=== PATIENT | male | born 1995 | race Caucasian/White ===

== ENCOUNTER 2024-06-01 16:28 | Inpatient (IN) | payer OTHER, SELFPAY ==
[2024-06-01] VITALS (7 sets, daily range): BP systolic 99–123; BP diastolic 62–78; BMI 24.7
--- NOTE | 2024-06-01 13:02 | ED.GENMED ---
History of Present Illness
General
Chief Complaint: Abnormal Lab Value
Source: patient and records
Time Seen by Provider: 06/01/24 12:49
History of Present Illness
History of Present Illness:
28yoM with a history of cyclic vomiting syndrome, GERD, and anemia presenting for evaluation of anemia. Patient started to have a headache about a week ago. He had similar symptoms in the past when he was anemic. His PCP sent him for lab work 6
days ago and hemoglobin was 8.3 at that time. Since getting his labs drawn, patient reports increasing lightheadedness as well as pallor. He was seen by his PCP today and was told to go to the ED for evaluation. Patient denies any shortness of
breath, chest pain, syncope. Patient was admitted in September 2023 and hemoglobin was 4.9 on presentation. He underwent EGD and colonoscopy which were normal. He also underwent a capsule study after his admission which was also normal and no
source of his anemia was found. Hemoglobin was 10.1 at time of discharge. He denies any hematochezia or melena currently. Of note, patient took a dose of azithromycin yesterday for chlamydia and had several episodes of vomiting several hours later.
Past History
Past History
ED Past Medical History: Other (Cyclic vomiting syndrome)
ED Past Surgical History: None
Social History
Tobacco: Non-smoker
Alcohol: None
Phy Exam
General Physical Exam
General Presentation: well appearing
General age: appears stated age
General Skin: warm and dry
General Habitus: normal
General Mental: alert
Cardiovascular Exam
Cardiovascular Exam: regular rate/rhythm, no edema and no murmur
Pulmonary Exam
Pulmonary Exam: lungs clear, no respiratory distress, no crackles and no wheezing
Gastrointestinal Exam
Gastrointestinal Exam: soft, non distended and tender (Mild tenderness in epigastrium)
Rectal Exam: other (No stool obtained on SRINIVAS)
Skin Exam
Skin Exam: normal color and warm/dry
Psychiatric Exam
Psychiatric Exam: normal mood/affect
Course
Orders/Labs/Results
Orders:
Orders
06/01/24 13:13
Type+Screen Urgent
Complete Blood Count/With Diff Urgent
Comprehensive Metabolic Panel Urgent
Ferritin Urgent
Folate Urgent
Comment: FERRITIN,TIBC,IRON,B12,FOLATE ADDED ON BY FLOOR 3:30PM 06-01-24
Iron Urgent
Lipase Urgent
PTT Urgent
Prothrombin Time Urgent
Total Iron Binding Urgent
Vitamin B12 Urgent
06/01/24 Dinner
Regular
At Your Request: Full Participation
Does patient need a safe tray?: No
06/01/24 15:36
Add On- LAB Routine
Tests Added?: ferritin, TIBC, iron level, B12, folate level
06/01/24 16:09
Blood Bank Products [* Blood Bank Products] Urgent
Blood Bank Products: *Packed RBC Leuko(PRBC's)
Quantity: 1
Transfuse Today: Yes
Reason: Anemia
06/01/24 16:10
HEMATOLOGY CONSULT Routine
Consulting Provider: Julian Baker
Was physician already notified: Yes
Reason for consult: Symptomatic anemia
06/01/24 16:12
Admit/Transfer Patient As Directed
Co-Sign Provider:
Level of Care: Inpatient admission
Assign to:: Medical/Surgical
Physician / Group: debby cole
Diagnosis: Symptomatic anemia likely iron deficient concern thalassemia
Reason for Hospitalization: Symptomatic anemia likely iron deficient concern thalassemia
Expected length of stay greater than two midnights?: Yes
ELOS- Estimated Length of Stay in days: 3
I certify the patient meets the requirements for IP care: Yes
Code Status As Directed
Resuscitation Status: Full Code
06/01/24 16:14
PRN Pain Medication Management As Directed
May give lesser potent ordered pain med per pt: Yes
preference::
Protocol:: Medication orders for pain may be administered in a
manner that supports deferring to patient preference
when the pt is:
- Requesting an ordered lesser potent pain medication.
Least to most potent pain medications are defined
as: acetaminophen < NSAID < tramadol < opioids
(morphine, oxycodone, hydromorphone).
- Requesting a lesser dose of the same medication IF
ORDERED.
- Requesting a less intrusive route of administration
if both routes are prescribed by the provider (PO <
IV).
06/01/24 16:16
Pantoprazole [Protonix] 40 mg PO NOW STA
06/01/24 18:41
Acetaminophen [Tylenol] 650 mg PO Q4HPRN PRN
Ondansetron Injectable [Zofran] 4 mg IV Q6HPRN PRN
06/01/24 18:41
Activity As Directed
Activity Level: As Tolerated
Pneumatic Compression Sleeves As Directed
Type: Knee high
Vital Signs As Directed
Frequency: Per unit guidelines
Pt Eval And Treat Routine
Activity Level: As Tolerated
DX Deep Vein Thrombosis Video Routine
06/02/24 06:00
Basic Metabolic Panel IN AM
Complete Blood Count/With Diff IN AM
06/02/24 08:00
Pantoprazole [Protonix] 40 mg PO DAILY
06/03/24 06:00
Basic Metabolic Panel IN AM
Complete Blood Count/With Diff IN AM
Abnormal Lab Results
06/01/24
13:13
RBC 4.05 L 10^6/uL
(4.70-6.10)
Hgb 7.5 L g/dL
(13.0-18.0)
Hct 25.4 L %
(39.0-52.0)
MCV 62.7 L fL
(80.0-94.0)
MCH 18.5 L pg
(27.0-31.0)
MCHC 29.5 L g/dL
(33.0-37.0)
RDW 15.0 H %
(11.5-14.5)
PT 15.3 H Sec
(11.4-14.6)
Iron 34 L ug/dl
(49-181)
% Saturation 7 L %
(20-50)
Crossmatch IS Only See Detail
06/01/24 13:13
06/01/24 13:13
Vital Signs
Initial and Last Documented VS:
Initial Vital Signs
Temp Pulse Resp BP Pulse Ox
98.0 F 79 18 110/78 100
06/01/24 12:08 06/01/24 12:08 06/01/24 12:08 06/01/24 12:08 06/01/24 12:08
Last Documented Vital Signs
Temp Pulse Resp BP Pulse Ox
98.4 F 69 18 110/67 99
06/01/24 18:42 06/01/24 18:42 06/01/24 18:42 06/01/24 18:42 06/01/24 18:42
MDM/Problems Addressed
Differential Diagnosis Includes:
28yoM here with anemia. Outpatient hemoglobin 8.3 last week. C/o lightheadedness and pallor. No hematochezia or melena reported. He is afebrile and hemodynamically stable. He is well-appearing in no acute distress. No stool obtained on digital
rectal exam. Differential diagnosis includes but is not limited to: Symptomatic anemia, hemolytic anemia, GI bleed
Initial ED plan: Check CBC, CMP, coags, and type and screen.
*Critical Care Note
Total Time (30-74mins, 75-104mins- exclusive of procedures): Not Applicable
Update Note
Update Note:
Hemoglobin 7.5 which is down from 10.1 at discharge in September 2023. Remainder of labs unremarkable. Will admit for further evaluation and management.
ED Attending Note
-
Portions of this chart may have been created with voice recognition software.� Occasional wrong word or��sound alike� substitutions may have occurred due to the inherent limitations of voice recognition software.
Discharge Plan
Departure
Patient Disposition: Admit
Date of Disposition: 06/01/24
Time of Disposition: 15:35
Presentation/result/management discussed w/ accepting MD/DO: Hospitalist
Discharge Problem:
Symptomatic anemia
Interventions
Interventions:
*Risk Screen - Suicide Last Done: 06/01/24 12:46
*General Assessment Last Done: 06/01/24 12:46
*Neglect/Abuse Screening Last Done: 06/01/24 12:46
ED- Fall Risk Assessment Last Done: 06/01/24 12:46
*ED COVID-19 Vaccine History Last Done: 06/01/24 18:13
*Nursing Disposition Last Done: 06/01/24 18:25
Discharge Date and Time
Discharge Date/Time: 06/01/24 18:41
[2024-06-01 13:41] LABS: % Basophils 1.9 % (0-2); % Eosinophils 3.3 % (0-6); % Immature Granulocytes 0.3 % (0-0.5); % Lymphocytes 34.2 % (20.5-51.1); % Monocytes 4.6 % (1.7-9.3); % Neutrophils 55.7 % (42.2-75.2); Absolute Basophils 0.1 10^3/uL (0-0.2); Absolute Eosinophils 0.2 10^3/uL (0-0.7); Absolute Lymphocytes 2.3 10^3/uL (1.2-3.4); Absolute Monocytes 0.3 10^3/uL (0.1-0.6); Absolute Neutrophils 3.8 10^3/uL (1.4-6.5); Hematocrit 25.4 % (39.0-52.0); Hemoglobin 7.5 g/dL (13.0-18.0); Mean Corp Hgb Conc. 29.5 g/dL (33.0-37.0); Mean Corpuscular Hgb 18.5 pg (27.0-31.0); Mean Corpuscular Volume 62.7 fL (80.0-94.0); Mean Platelet Volume 9.1 fL (7.4-10.4); Nucleated Red Blood Cells % 0 % (-); Platelet Count 306 10^3/uL (130-400); Red Blood Cell Count 4.05 10^6/uL (4.70-6.10); White Blood Cell Count 6.8 10^3/uL (4.8-10.8)
[2024-06-01 13:53] LABS: PT 15.3 Sec (11.4-14.6)
[2024-06-01 14:03] LABS: ALT (SGPT) 14 U/L (0-50); AST (SGOT) 27 U/L (17-59); Albumin 4.7 g/dl (3.5-5.0); Alkaline Phosphatase 62 U/L (38-126); Blood Urea Nitrogen 14 mg/dl (9-20); Calcium 9.4 mg/dl (8.4-10.2); Carbon Dioxide 26 mmol/L (22-30); Chloride 103 mmol/L (98-107); Glucose 96 mg/dl (70-99); Potassium 4.1 mmol/L (3.5-5.1); Sodium 135 mmol/L (135-145); Total Bilirubin 0.8 mg/dl (0.2-1.3); Total Protein 7.4 g/dl (6.3-8.2); eGFR > 60.00
[2024-06-01 14:21] LABS: Lipase 126 U/L (23-300)
--- NOTE | 2024-06-01 15:41 | HPS.HSE ---
Family Physician
-
Family Physician: Gray Sagastume
Chief Complaint
-
Headaches, lightheadedness, pallor x 1 week
History of Present Illness
28-year-old male complaining of headache for the past week. He states he took 1-2 doses of Motrin 600 mg and Tylenol not Excedrin for his headache. He reports having similar symptoms when he was anemic in September 2023. He was placed on oral iron
supplementation in September 2023 but stopped shortly after due to constipation. He did not have hematology evaluation due to not having health insurance until this year May 12, 2024. His PCP referred him for outpatient lab work 6 days ago and he
was called today with a hemoglobin of 8.3. He reports his symptoms getting worse over the past several days along with increased lightheadedness and pallor. He is taking Excedrin extra strength 2 tabs every 6 as needed for headaches which does
contain aspirin. He denies shortness breath, cough, fever, chills, chest pain, abdominal pain, nausea, vomiting, diarrhea, black or bloody stools. He reports taking doxycycline Thursday and Thursday for chlamydia. He reports he had vomiting
so was switched to Zithromax 1000 mg which he took last night and vomited this a.m.
The patient had a prior admission 09/30 - 10/02/2023 for symptomatic anemia at that time hemoglobin 4.9 improved to 4:10 units PRBC. Underwent EGD and colonoscopy along with capsule study all which were negative. He was started on oral iron
supplements and advised to follow-up with hematology.
Other past medical history: Cyclical vomiting/marijuana use, GERD.
Medical History
Past Medical History
Past Medical History: Reports Other
Additional Past Medical History:
Cyclical vomiting
Migraines
Gastroesophageal reflux disease
Iron deficiency anemia September 2023
Past Surgical History: Reports Other
Additional Past Surgical History:
[place] teeth
EGD/[facility]/capsule Endo September 2023 negative
Social History
Tobacco: Smoker (Marijuana-states it helps with his cyclical vomiting syndrome)
Alcohol: None
Drug: Marijuana
Personal: Single
Employment: Employed
Family History
Family History: Other (Mother-RA, [place], father HTN, brother [place] late 40s)
Allergies / Home Medications
Allergies reflects when Allergies were last updated in [employer] [employer].
Home Medications with original date entered in [employer] [employer]
Allergy/Medication List:
Allergies
Allergy/AdvReac Type Severity Reaction Status Date / Time
No Known Allergies Allergy Unverified 09/30/23 10:00
Home Medications
omeprazole 40 mg capsule,delayed release 40 mg PO DAILY Gastrointestinal Issue 09/30/23
acetaminophen 500 mg tablet 1,000 mg PO Q6HPRN PRN mild pain 06/01/24
azithromycin 500 mg tablet 1,000 mg PO DAILY 06/01/24
ondansetron 4 mg disintegrating tablet 4 mg PO DAILYPRN PRN nausea 06/01/24
Review of Systems
-
History Source: Patient and Family (Girlfriend at bedside)
A 12 point ROS was completed and negative except as noted: Yes
Constitutional: Denies Fever or Fatigue
EENT: Denies Sore Throat or Runny Nose
Respiratory: Denies Cough or Trouble Breathing
Cardiac: Denies Chest Pain, Palpitations or Syncope
Abdomen/GI: Denies Abdominal Pain, Nausea, Vomiting, Diarrhea or Constipated
: Denies Dysuria, Frequency, Flank Pain, Incontinence or Difficulty Voiding
Musculoskeletal: Denies Joint Pain or Edema
Skin: Denies Itching or Rash
Neurological: Reports Dizzy and Headache
Endocrine: Reports No Symptoms
Hematologic/Lymphatic: Reports No Symptoms
Psych: Reports Calm
Physical Exam
Vital Signs
Vital Signs
Temp Pulse Resp BP Pulse Ox
98.0 F 81 18 118/72 99
06/01/24 12:08 06/01/24 13:48 06/01/24 13:48 06/01/24 13:48 06/01/24 13:48
Physical Exam
General: Comfortable and Conversant; No Pain, Fever or Chills
HEENT: NormoCephalic, Anicteric and PERRLA
Respiratory: Clear; No Wheezes, Rales or Rhonchi
Cardiac: S1/S2 and Regular Rhythm; No Murmur, Rub, Gallop or Peripheral Edema
Breast: Deferred by me
GI: Soft, Non Tender, Non Distended, Normal Bowel Sounds and No Hepatosplenomegaly
Rectal: Other (Per ER no stool in rectal vault to test)
Genito-urinary: Deferred by me
Musculoskeletal: No Clubbing, No Cyanosis and No Edema
Skin: Warm and Dry; No Rash
Neuro: AO x 3, No Motor Deficits, Nonfocal/grossly intact, Cranial Nerves Intact and No Sensory Deficits; No Slurred Speech, Facial Droop or Tremors
Psych: Calm
Laboratory Results
-
06/01/24 13:13
06/01/24 13:13
Laboratory Results
PT 15.3 Sec (11.4-14.6) H 06/01/24 13:13
INR 1.20 06/01/24 13:13
APTT 26.0 Sec (23.4-35.0) 06/01/24 13:13
Total Bilirubin 0.8 mg/dl (0.2-1.3) 06/01/24 13:13
AST 27 U/L (17-59) 06/01/24 13:13
ALT 14 U/L (0-50) 06/01/24 13:13
Alkaline Phosphatase 62 U/L (38-126) 06/01/24 13:13
Lipase 126 U/L (23-300) 06/01/24 13:13
Impression/Plan
-
Impression/plan:
Admit to MedSurg
#Symptomatic anemia likely IRON Deficiency but concern for Thalassemia
#Hx iron deficiency Dx September 2023
#Hx EGD, [facility], capsule Endo September 2023 negative
-No stool in rectal vault
-Patient stopped oral iron last year due to constipation
-Hgb 7.5, MCV 62.7
-Type and screen, obtain blood consent
-Transfuse 1 unit PRBC
-Check ferritin, iron, TIBC, B12, folate
-Check stool occult
-Consult hematology
#Recent chlamydia infection
Patient reports taking 3 days of doxycycline but vomited
Took single dose of 1000 mg Zithromax yesterday-will hold further doses
#GERD
-Continue PPI
#Cyclical vomiting/marijuana use Hx
-Daily marijuana use smoking not currently vaping
#Migraine headaches
-Hold Motrin, Excedrin
-May have Tylenol as needed
DVT prophylaxis
SCDs
Full code
--- NOTE | 2024-06-01 16:17 | W.PN.UPDATE ---
Update Note
Progress Note Update
HPI: 28-year-old male PMH severe anemia (Hgb 4.9 in Sep 2023 with unrevealing GI work up), cyclical vomiting/marijuana use, GERD; p/w lightheadedness and pallor.
He also c/o headache last week, took Excedrin for headache, and now headache has resolved.
He denies to other symptoms. Apparently took doxycycline and azithromycin x1 for Chlamydia.
A/P
# Symptomatic anemia, EMILY and possible hemoglobinopathy such as thalassemia
EGD, C scope, capsule endoscopy from September 2023 were unrevealing
Hemoglobin 7.5 on admission, will transfuse 1 unit
Follow iron panel, B12, folate level
Hematology consult for hemoglobinopathy evaluation
# Recent chlamydia infection
s/p 3 days doxycycline but vomited, then took Zithromax x1 dose
# GERD
Continue PPI
# Cyclical vomiting/marijuana use Hx
Daily marijuana use smoking not currently vaping
# Migraine headaches
Hold Motrin, Excedrin
Tylenol as needed
DVT prophylaxis: SCDs
Full code
[2024-06-01] MEDS: PROTONIX 40 MG PO (16:27)
[2024-06-01 17:16] LABS: Iron 34 ug/dl (49-181)
[2024-06-01 17:25] LABS: Percent Saturation 7 % (20-50); Total Iron Binding Capacity 431 ug/dl (261-462)
[2024-06-01 18:12] LABS: Folate 4.3 ng/ml (2.76-20); Vitamin B12 453 pg/ml (239-931)
--- NOTE | 2024-06-01 18:32 | PTCARENOTE ---
Pt arrived to the floor in no apparent distress. Pt is A+Ox3, he was able to stand up on his own, he was able to take a few steps to the scale. The pt was able to walk to his bed by the window without any incident. This pt arrived at 630 pm with no
blood running and 1 unit of packed red blood cells ready since 530 pm.
[2024-06-01 21:03] LABS: Ferritin 3.4 ng/ml (17.9-464.0)
[2024-06-01] MEDS: TYLENOL 650 MG PO (21:09)
[2024-06-02 06:48] LABS: % Basophils 1.5 % (0-2); % Eosinophils 5.3 % (0-6); % Immature Granulocytes 0.3 % (0-0.5); % Lymphocytes 33.4 % (20.5-51.1); % Monocytes 6.1 % (1.7-9.3); % Neutrophils 53.4 % (42.2-75.2); Absolute Basophils 0.1 10^3/uL (0-0.2); Absolute Eosinophils 0.4 10^3/uL (0-0.7); Absolute Lymphocytes 2.5 10^3/uL (1.2-3.4); Absolute Monocytes 0.5 10^3/uL (0.1-0.6); Absolute Neutrophils 3.9 10^3/uL (1.4-6.5); Hematocrit 29.9 % (39.0-52.0); Hemoglobin 8.8 g/dL (13.0-18.0); Mean Corp Hgb Conc. 29.4 g/dL (33.0-37.0); Mean Corpuscular Hgb 19.1 pg (27.0-31.0); Nucleated Red Blood Cells % 0 % (-); Platelet Count 312 10^3/uL (130-400); Red Cell Dist. Width 16.9 % (11.5-14.5); White Blood Cell Count 7.3 10^3/uL (4.8-10.8)
--- NOTE | 2024-06-02 07:03 | W.PN.HOSP.TC ---
Addendum entered and electronically signed by Lucila Martin MD 06/02/24 11:00:
A/P
# Symptomatic anemia, EMILY and possible hemoglobinopathy such as thalassemia
EGD, C scope, capsule endoscopy from September 2023 were unrevealing
Hemoglobin 7.5 on admission, s/p 1 unit PRBC, Hgb improved to 8.8
iron panel noted EMILY
B12, folate level acceptable
Appreciate Hematology input for anemia, follow up outpt
# Recent chlamydia infection
s/p 3 days doxycycline but vomited, then s/p Zithromax x1 dose
# GERD
Continue PPI
# Cyclical vomiting/marijuana use Hx
Daily marijuana use smoking not currently vaping
# Migraine headaches
Hold Motrin, Excedrin
Tylenol as needed
DVT prophylaxis: SCDs
Full code
Original Note:
Today's Communication/Plan
-
Patient to be discharged once cleared by hematology and has undergone IV Iron infusion
Assessment / Plan
Assessment / Plan
Assessment:
28 y old male with a history of anemia, came to ED complaining of worsening headaches for the past week. Patient has a history of acute anemia from back in September. Patient was transfused 1 unit of blood after which his headaches and symptoms
resolved. Patient has been feeling better and has no further complaints. IV iron infusion, Awaiting Hematology consultation.
Plan:
Symptomatic anemia due to EMILY and possible hemoglobinopathy such as thalassemia
EGD, C scope, capsule endoscopy from September 2023 were unrevealing
Hemoglobin 7.5 on admission, will transfuse 1 unit
7.5->8.8 after transfusion
Iron 34 L, TIBC 431, % Sat 7L, Ferritin 3.4L, B12 453, folate level 4.3
Hematology consult for hemoglobinopathy evaluation
-Reticulocyte count ordered (1.4%)
-Continue monitoring CBC
-IV iron infusion started
-Follow up with Hematology outpatient
Recent chlamydia infection
s/p 3 days doxycycline but vomited, then took Zithromax x1 dose
-holding abx for now
GERD
Continue PPI
Cyclical vomiting/marijuana use Hx
Daily marijuana use, smoking not currently vaping
Migraine headaches
Hold Motrin, Excedrin
Tylenol as needed
DVT prophylaxis: SCDs
Full code
Anticipated Discharge: Today
Subjective/Interval History
-
Date of Service: June 02, 2024
Patient has been feeling well, no discomfort noted
Objective Data
-
Labs:
Laboratory Results
06/02/24
04:24
WBC 7.3
Hgb 8.8 L
Hct 29.9 L
Plt Count 312
Sodium Pending
Potassium Pending
Chloride Pending
Carbon Dioxide Pending
BUN Pending
Creatinine Pending
Glucose Pending
Calcium Pending
Vital Signs:
Vital Signs
Temp Pulse Resp BP Pulse Ox
98.0 F 65 20 99/63 100
06/01/24 23:26 06/01/24 23:26 06/01/24 23:26 06/01/24 23:26 06/01/24 21:05
I&O
06/01/24 06/02/24 06/03/24
06:59 06:59 06:59
Intake Total 790 / 790
Balance 790 / 790
Review of Systems
-
History Source: Patient
Constitutional: Denies Fever, No Appetite, Fatigue, Sleep Disturbance or Weakness
Respiratory: Denies Cough, Hemoptysis, Trouble Breathing or Wheezing
Cardiac: Denies Chest Pain, Diaphoresis, Palpitations or Syncope
Abdomen/GI: Denies Abdominal Pain, Nausea, Vomiting, Diarrhea, Constipated, Bloody Stools or Black Stools
Neuro: Reports Headache (resolved after last night); Denies Weakness or Lightheadedness
Hematologic / Lymphatic: Denies Bleeding or Bruising
Physical Exam
-
General: Well Developed, Well Nourished, No Apparent Distress and Comfortable
Respiratory: Clear to Auscultation and Non Labored Respirations
Cardiac: Regular Rhythm and S1/S2
GI: Soft, Nontender, Nondistended and Normal Bowel Sounds
Musculoskeletal: No Clubbing, No Cyanosis and No Edema
Skin: Warm and Dry
Neuro: Awake, Alert, Oriented and AO x 3
Psych: Calm
Data Reviewed
-
Labs: Labs Reviewed by me, Discussed with Physician and Discussed with Patient
[2024-06-02 07:17] LABS: Blood Urea Nitrogen 12 mg/dl (9-20); Carbon Dioxide 26 mmol/L (22-30); Chloride 105 mmol/L (98-107); Estimated Creatinine Clearance 115 ml/min; Glucose 89 mg/dl (70-99); Sodium 138 mmol/L (135-145); eGFR > 60.00
[2024-06-02 08:02] VITALS: BP 118/65
--- NOTE | 2024-06-02 08:28 | CON.ONC ---
Impression
Impression
symptomatic iron deficient anemia
Plan
Plan
IV iron while inpt, re-trial oral iron 325mg (65mg elemental iron) every other day at discharge
check heme stool
check peripheral blood celiac panel
Consider GI re-evaluation
OP hematology follow up
Patient History
History of Present Illness
28yo M presented with palor and lightheadedness. He report symptom onset was 1 week ago. He has been taking Motrin and Tylenol for his headache. He reports similar symptoms when he had anemia in September 2023. He underwent EGD, Colonoscopy, and
capsule study at that time without evidence of blood loss. He was intolerant to oral iron due to constipation and therefore stopped. He did not seek hematology follow up last year due to lack of health insurance. Initial evaluation showed Hgb
7.5g/dL, MCV 62.7 with normal platelets and WBC. He is s/p 1U PRBC with improvement of Hgb to 8.8g/dL. Iron studies with ferritin 3.5, IS 7%, TIBC 431, Iron 34, b12 453, folate 4.3. He denies any family hx of thalassemia. He tells me that his
family is [place].
Denies fever, chills, cough, chest pain, SOB at rest, diarrhea. He denies any overt bleeding or atypical bruising.
Past-Medical/Surgical History
PMH chlamydia, GERD, migraines, cyclic nausea
PSH: denies
Family denies malignancy, thalassemia, or bleeding/clotting disorders
Social: Single, employed, never tobacco smoker, uses marijuana, denies ETOH
Patient Medication
�Medication �Instructions �Recorded �Confirmed �Last Taken �Type
omeprazole 40 mg capsule,delayed 40 mg PO DAILY Gastrointestinal 09/30/23 06/01/24 05/31/24 History
release Issue
acetaminophen 500 mg tablet 1,000 mg PO Q6HPRN PRN mild pain 06/01/24 06/01/24 2 Days Ago History
~05/30/24
azithromycin 500 mg tablet 1,000 mg PO DAILY 06/01/24 Unknown History
ondansetron 4 mg disintegrating 4 mg PO DAILYPRN PRN nausea 06/01/24 06/01/24 Unknown History
tablet
Active Medications
Generic Name Dose Route Start Last Admin
Trade Name Freq PRN Reason Stop Dose Admin
Acetaminophen 650 mg 06/01/24 18:41 06/01/24 21:09
Acetaminophen 325 Mg Tablet PO 06/29/24 18:40 650 mg
Q4HPRN PRN Administration
mild pain/PARMAR/temp> 100.4F
Ondansetron HCl 4 mg 06/01/24 18:41
Ondansetron 4 Mg/2 Ml Vial IV 06/29/24 18:40
Q6HPRN PRN
nausea and vomiting
Pantoprazole Sodium 40 mg 06/02/24 08:00
Pantoprazole 40 Mg Delayed Release Tablet PO 06/30/24 07:59
DAILY CHERISE
Sodium Chloride 0 flush 06/01/24 19:00
Sodium Chloride 0.9% (Flush) Syringe IV 06/29/24 18:59
PER PROTOCOL CHERISE
Review of Systems
-
Review of symptoms is notable for HPI, otherwise negative
Physical Exam
-
General: No Apparent Distress, Comfortable and Conversant
HEENT: Moist Mucous Membranes; Negative Jaundice
Cardiology: Normal Sinus Rhythm
Pulmonary: Clear
GI: Soft
Extremities: Pulses Present; Negative Phlebitic Signs or Edema
Neurology: Non Focal
Skin: Warm
Hematologic / Lymphatic: No Lymphadenopathy and No Petechiae
Psych: Calm
Labs
Lab Results
WBC 7.3 10^3/uL (4.8-10.8) 06/02/24 04:24
RBC 4.60 10^6/uL (4.70-6.10) L 06/02/24 04:24
Hgb 8.8 g/dL (13.0-18.0) L 06/02/24 04:
Hct 29.9 % (39.0-52.0) L 06/02/24 04:
MCV 65.0 fL (80.0-94.0) L 06/02/24 04:
MCH 19.1 pg (27.0-31.0) L 06/02/24:
MCHC 29.4 g/dL (33.0-37.0) L 06/02/24 04:
RDW 16.9 % (11.5-14.5) H 06/02/24:
Plt Count 312 10^3/uL (130-400) 06/02/24:
MPV 9.0 fL (7.4-10.4) 06/02/24:
Abs Immat Gran (auto) 0.0 10^3/uL (0-0.05) 06/02/24:
Absolute Neuts (auto) 3.9 10^3/uL (1.4-6.5) 06/02/24:
Absolute Lymphs (auto) 2.5 10^3/uL (1.2-3.4) 06/02/24:
Absolute Monos (auto) 0.5 10^3/uL (0.1-0.6) 06/02/24:
Absolute Eos (auto) 0.4 10^3/uL (0-0.7) 06/02/24:
Absolute Basos (auto) 0.1 10^3/uL (0-0.2) 06/02/24:
Immature Gran % 0.3 % (0-0.5) 06/02/24:
Neutrophils % 53.4 % (42.2-75.2) 06/02/24:
Lymphocytes % 33.4 % (20.5-51.1) 06/02/24:
Monocytes % 6.1 % (1.7-9.3) 06/02/24 04:24
Eosinophils % 5.3 % (0-6) 06/02/24 04:24
Basophils % 1.5 % (0-2) 06/02/24 04:24
Creatinine 1.0 mg/dL (0.7-1.3) 06/02/24 04:24
Vital Signs
Vital Signs
Temp Pulse Resp BP Pulse Ox
98.1 F 76 18 118/65 98
06/02/24 08:02 06/02/24 08:02 06/02/24 08:02 06/02/24 08:02 06/02/24 08:02
[2024-06-02] MEDS: PROTONIX 40 MG PO (08:49)
--- NOTE | 2024-06-02 09:03 | PTOTSP ---
Received order for PT eval from the ED. Reviewed chart and s/w RN who reports pt is independently ambulating in his room and does not need PT services. Agreed to sign off.
[2024-06-02 10:21] LABS: Reticulocyte Count 1.4 % (0.4-2.8)
--- NOTE | 2024-06-02 11:23 | W.DCSUMMARY ---
Discharge Summary
Discharge Data
Date of Admission: 06/01/24
Date of Discharge: 06/02/24
-
Pending Results: No
Hospital Course
Admission Diagnosis-
Symptomatic anemia likely Iron Deficiency Anemia but concern for Thalassemia
Conditions Prior to Admission-
Cyclical vomiting
Migraines
Gastroesophageal reflux disease
Iron deficiency anemia
Hospital Course-
28 year old male with a history of migraines, GERD, and Iron deficiency anemia came to the hospital on 06/01 with complaint of increased headaches for the past week. Patient had been taking Motrin and Tylenol for his headache but they had not been
resolving. Patient stated that he had similar headaches in the past when he had Iron Deficiency Anemia back in September 2023. He was placed on Iron supplementation at that time but stopped taking it because of increased constipation. Patient did not
follow up with a veneer splicer at that time due to not having health insurance. Patient went to see his PCP for blood work which found his Hemoglobin levels to be 8.3. He was advised to come to the ER at this time. In the ER, patient was found to be
anemic with a Hgb of 7.5 and MCV of 62.7. Patient was transfused 1 unit of blood and was admitted for further monitoring. Hematology was consulted at this time.
Patient's Hgb levels improved to 7.5 after transfusion and his iron panel studies showed iron deficiency anemia. Patient was transfused with IV iron and given a prescription for Iron to take as outpatient. Patient discharged after receiving IV Iron
and instructions to follow up with Hematology next week on .
Patient's other conditions were managed with home medications during his admission.
Discharge Plan
-
Patient Disposition: Home (Routine Discharge)
Discharge Diagnosis/Procedures: Symptomatic Anemia Possibly Secondary to Iron Deficiency and Possible Hemoglobinopathy such as thalassemia
Diet: No restrictions
Activity: No restrictions
Driving Restrictions: As prior to admission
Bathing Restrictions: None
Activity Restrictions/Additional Instructions:
Follow up with D[employer] B[employer]er within 1 week of discharge
Referrals:
Gray Sagastume PA-C [Family Provider] -
Additional Discharge Medication Instructions: Take iron supplement 325mg every other day. Take Colace and Senna as needed for constipation
Prescriptions:
New
ferrous sulfate [iron] 325 mg (65 mg iron) tablet
325 mg PO DAILY 30 Days Qty: 30 2RF
senna 8.6 mg capsule
8.6 mg PO DAILY 10 Days Qty: 10 0RF
docusate sodium [Colace] 100 mg capsule
100 mg PO DAILY 10 Days Qty: 10 0RF
Continued
omeprazole 40 mg Capsule,Delayed Release(Dr/Ec)
40 mg PO DAILY
ondansetron 4 mg Tablet,Disintegrating
4 mg PO DAILYPRN PRN (Reason: nausea)
acetaminophen 500 mg Tablet
1,000 mg PO Q6HPRN PRN (Reason: mild pain)
Discontinued
azithromycin 500 mg Tablet
1,000 mg PO DAILY
Patient Comments:
06/01/24: Patient states he took 1000mg, but unable to confirm due to lack of pharmacy or [facility] records.
Discharge Orders:
Discharge Patient (As Directed); Ordered 06/02/24
Ordered By: Michel Clancy
Discharge Date and Time
Print Language: IVORIAN
--- NOTE | 2024-06-02 11:36 | CM ---
Alert awake oriented patient who lives with his parents Daniela mom they live in a 2 story home with 1 step to enter and 12 steps to bed and bathroom. He is independent in driving and in all activities of daily living.He was offered VN he declined
need.GF will drive him home.
No VN hx / No SNF history
Pharmacy [facility]
PCP DR Sagastume
PLAN Home Declined VN
[2024-06-02] MEDS: FERRLECIT 110 MG IV (13:00)
[2024-06-02 13:15] VITALS: BP 120/71
== END 2024-06-02 14:13 | disposition home or self-care (01) | DRG 812 ==
LOC: 4 EAST ACU 16:28
PROVIDERS: Clinical Nurse Specialist Family Health; Physician Assistant; ADMITTING PHYSICIAN Internal Medicine; CONSULT PHYSICIAN Internal Medicine Hematology & Oncology; EMERGENCY PHYSICIAN Student in an Organized Health Care Education/Training Program; FAMILY PHYSICIAN Physician Assistant Medical
PROC: 30233N1 Transfusion of Nonautologous Red Blood Cells into Peripheral Vein, Percutaneous Approach (ICD-10-PCS; 2024-06-01)
DX: D50.9 Iron deficiency anemia, unspecified (principal); D56.9 Thalassemia, unspecified; K21.9 Gastro-esophageal reflux disease without esophagitis; R11.15 Cyclical vomiting syndrome unrelated to migraine; G43.909 Migraine, unspecified, not intractable, without status migrainosus; Z86.19 Personal history of other infectious and parasitic diseases; Z59.7 Insufficient social insurance and welfare support; Z79.899 Other long term (current) drug therapy
CPT/HCPCS: 80048; 80053; 82607; 82728; 82746; 83540; 83550; 83690; 85025; 85045; 85610; 85730; 86850; 86900; 86901; 86920; 99285; J2916; P9016

== ENCOUNTER 2024-06-17 11:09 | Emergency (ER) | payer OTHER, SELFPAY ==
[2024-06-17 11:11] VITALS: BP 115/73
--- NOTE | 2024-06-17 12:04 | ED.GENMED ---
History of Present Illness
General
Chief Complaint: Rectal Bleeding
Source: patient
Exam Limitations: none
Time Seen by Provider: 06/17/24 11:44
History of Present Illness
History of Present Illness:
See MDM
Past History
Past History
ED Past Medical History: Other (Cyclic vomiting syndrome)
ED Past Surgical History: None
Social History
Tobacco: Non-smoker
Alcohol: None
Phy Exam
Physical Exam
Physical Exam:
See MDM
Course
Orders/Labs/Results
Orders:
Orders
06/17/24 12:21
Type+Screen Urgent
Complete Blood Count/With Diff Urgent
Comprehensive Metabolic Panel Urgent
PTT Urgent
Prothrombin Time Urgent
Abnormal Lab Results
06/17/24
12:21
RBC 4.66 L 10^6/uL
(4.70-6.10)
Hgb 8.9 L g/dL
(13.0-18.0)
Hct 30.6 L %
(39.0-52.0)
MCV 65.7 L fL
(80.0-94.0)
MCH 19.1 L pg
(27.0-31.0)
MCHC 29.1 L g/dL
(33.0-37.0)
RDW 21.1 H %
(11.5-14.5)
Basophils % 2.3 H %
(0-2)
06/17/24 12:21
06/17/24 12:21
Vital Signs
Initial and Last Documented VS:
Initial Vital Signs
Temp Pulse Resp BP Pulse Ox
98.1 F 86 18 115/73 98
06/17/24 11:11 06/17/24 11:11 06/17/24 11:11 06/17/24 11:11 06/17/24 11:11
Last Documented Vital Signs
Temp Pulse Resp BP Pulse Ox
98.1 F 86 18 115/73 98
06/17/24 11:11 06/17/24 11:11 06/17/24 11:11 06/17/24 11:11 06/17/24 11:11
MDM/Problems Addressed
Differential Diagnosis Includes:
HPI and MDM Narrative:
28-year-old male presenting for evaluation of dark stools over the past few days. This reminds him of his recent GI bleeding. Patient states he had GI bleeding September requiring blood transfusions. At that time, patient states they did a
colonoscopy, endoscopy and pill colonoscopy. Patient was readmitted a few weeks ago with recurrent anemia which was believed to be related to iron deficiency.
Patient states he has developed abdominal discomfort again and multiple days of black tarry stools
Given his history, will obtain hemoglobin levels
Physical exam
General: Well appearing and non-toxic
HEENT: protecting airway
Neck: appears supple
CV: No evidence of cyanosis
Resp: No accessory muscle use
Abd: Non-distended. Mild epigastric discomfort
Extremities: No deformities
Neuro: alert
Psych: Normal affect
Skin: Intact
Problems Addressed including Acute and Chronic Conditions affecting care:
1. GI bleeding
Acuity: acute
Prognosis: stable
Details: Given his history, will obtain hemoglobin testing
Updates
Case discussed with GI. Given his recent negative workup and his stable hemoglobin, they discussed outpatient follow-up. Patient is very comfortable this plan. We discussed taking his iron daily instead of every other day. He has hematology
appointment on Thursday
Differential Diagnosis (but not limited to): Upper GI bleeding, lower GI bleeding, iron deficiency
Testing considered: CT abdomen/pelvis
Drug therapy (if applicable): OTC meds, please see d/c instruction regarding Rx drugs
Amount and/or Complexity of Data Reviewed
Clinical info obtained from: Patient
External data reviewed: Prior episode of GI bleeding with negative workup which included colonoscopy, endoscopy
Labs I independently reviewed (but not limited to): Hemoglobin stable
Radiology: N/A
Pulse Ox: not hypoxic
EKG independently reviewed: N/A
Cold Roll Operator: N/A
Critical Care: N/A
Risk of Complication:
Social Determinants of health: Good social support
Discussed with other providers: Gastroenterology
Escalation of Care includes Admit/Obs: After being observed in the Emergency Department, pt stable for discharge.
Occasional wrong word or 'sound a like' substitutions may have occurred due to the inherent limitations of voice recognition software. Read the chart carefully and recognize, using context, where substitutions have occurred.
*Critical Care Note
Total Time (30-74mins, 75-104mins- exclusive of procedures): Not Applicable
ED Attending Note
-
Portions of this chart may have been created with voice recognition software.� Occasional wrong word or��sound alike� substitutions may have occurred due to the inherent limitations of voice recognition software.
Discharge Plan
Departure
Patient Disposition: Home (Routine Discharge)
Date of Disposition: 06/17/24
Time of Disposition: 13:13
Patient with high blood pressure during this ER visit?: No
Discharge Problem:
Iron (Fe) deficiency anemia
Prescriptions:
No Action
omeprazole 40 mg Capsule,Delayed Release(Dr/Ec)
40 mg PO DAILY
ondansetron 4 mg Tablet,Disintegrating
4 mg PO DAILYPRN PRN (Reason: nausea)
acetaminophen 500 mg Tablet
1,000 mg PO Q6HPRN PRN (Reason: mild pain)
ferrous sulfate [iron] 325 mg (65 mg iron) tablet
325 mg PO DAILY 30 Days Qty: 30 2RF
Referrals:
Issa Benson PA-C [Family Provider] -
Activity Restrictions/Additional Instructions:
As we discussed, please start taking your iron daily instead of every other day. Please keep your hematology appointment on Thursday. Return for worsening symptoms.
Discharge Date and Time
Print Language: ROMANSH
[2024-06-17 12:15] VITALS: BP 118/74
[2024-06-17 12:31] LABS: % Basophils 2.3 % (0-2); % Eosinophils 5.2 % (0-6); % Immature Granulocytes 0.2 % (0-0.5); % Lymphocytes 36.5 % (20.5-51.1); % Monocytes 6.2 % (1.7-9.3); % Neutrophils 49.6 % (42.2-75.2); Absolute Basophils 0.1 10^3/uL (0-0.2); Absolute Eosinophils 0.3 10^3/uL (0-0.7); Absolute Lymphocytes 1.8 10^3/uL (1.2-3.4); Absolute Monocytes 0.3 10^3/uL (0.1-0.6); Absolute Neutrophils 2.4 10^3/uL (1.4-6.5); Hematocrit 30.6 % (39.0-52.0); Hemoglobin 8.9 g/dL (13.0-18.0); Mean Corp Hgb Conc. 29.1 g/dL (33.0-37.0); Mean Corpuscular Hgb 19.1 pg (27.0-31.0); Mean Corpuscular Volume 65.7 fL (80.0-94.0); Mean Platelet Volume 8.6 fL (7.4-10.4); Nucleated Red Blood Cells % 0 % (-); Platelet Count 378 10^3/uL (130-400); Red Blood Cell Count 4.66 10^6/uL (4.70-6.10); Red Cell Dist. Width 21.1 % (11.5-14.5); White Blood Cell Count 4.9 10^3/uL (4.8-10.8)
[2024-06-17 12:42] LABS: APTT 27.6 Sec (23.4-35.0); INR 1.15; PT 14.5 Sec (11.4-14.6)
[2024-06-17 12:59] LABS: ALT (SGPT) 22 U/L (0-50); AST (SGOT) 33 U/L (17-59); Albumin 4.9 g/dl (3.5-5.0); Alkaline Phosphatase 53 U/L (38-126); Blood Urea Nitrogen 16 mg/dl (9-20); Calcium 9.8 mg/dl (8.4-10.2); Carbon Dioxide 25 mmol/L (22-30); Chloride 102 mmol/L (98-107); Glucose 99 mg/dl (70-99); Potassium 4.4 mmol/L (3.5-5.1); Sodium 140 mmol/L (135-145); Total Bilirubin 0.8 mg/dl (0.2-1.3); Total Protein 7.5 g/dl (6.3-8.2); eGFR > 60.00
[2024-06-17 13:00] VITALS: BP 120/60
== END 2024-06-17 13:37 | disposition home or self-care (01) ==
LOC: EMR 11:09
PROVIDERS: EMERGENCY PHYSICIAN Student in an Organized Health Care Education/Training Program; FAMILY PHYSICIAN Physician Assistant Medical
DX: K62.5 Hemorrhage of anus and rectum (principal); R10.13 Epigastric pain; D50.9 Iron deficiency anemia, unspecified; R11.15 Cyclical vomiting syndrome unrelated to migraine
CPT/HCPCS: 99283; 80053; 85025; 85610; 85730; 86850; 86900; 86901

== ENCOUNTER → 2024-07-01 14:35 | Outpatient (REF) | payer OTHER, SELFPAY ==
[2024-07-01 18:09] LABS: % Basophils 1.4 % (0-2); % Eosinophils 3.6 % (0-6); % Immature Granulocytes 0.2 % (0-0.5); % Monocytes 5.3 % (1.7-9.3); % Neutrophils 60.5 % (42.2-75.2); Absolute Basophils 0.1 10^3/uL (0-0.2); Absolute Eosinophils 0.2 10^3/uL (0-0.7); Absolute Lymphocytes 1.7 10^3/uL (1.2-3.4); Absolute Monocytes 0.3 10^3/uL (0.1-0.6); Absolute Neutrophils 3.6 10^3/uL (1.4-6.5); Hematocrit 32.1 % (39.0-52.0); Hemoglobin 9.4 g/dL (13.0-18.0); Mean Corp Hgb Conc. 29.3 g/dL (33.0-37.0); Mean Corpuscular Hgb 19.3 pg (27.0-31.0); Mean Corpuscular Volume 65.9 fL (80.0-94.0); Mean Platelet Volume 8.8 fL (7.4-10.4); Nucleated Red Blood Cells % 0 % (-); Platelet Count 349 10^3/uL (130-400); Red Blood Cell Count 4.87 10^6/uL (4.70-6.10); Red Cell Dist. Width 21.2 % (11.5-14.5); White Blood Cell Count 5.9 10^3/uL (4.8-10.8)
== END ==
LOC: OIDL 14:35
PROVIDERS: ATTENDING PHYSICIAN Internal Medicine Hematology & Oncology
DX: D50.8 Other iron deficiency anemias (principal)
CPT/HCPCS: 85025

== ENCOUNTER → 2024-07-08 15:49 | Outpatient (REF) | payer OTHER, SELFPAY ==
[2024-07-08 21:14] LABS: Hematocrit 33.4 % (39.0-52.0); Mean Corp Hgb Conc. 29.9 g/dL (33.0-37.0); Mean Corpuscular Hgb 20.7 pg (27.0-31.0); Mean Platelet Volume 9.2 fL (7.4-10.4); Platelet Count 268 10^3/uL (130-400); Red Blood Cell Count 4.84 10^6/uL (4.70-6.10); Red Cell Dist. Width 22.5 % (11.5-14.5)
[2024-07-08 22:33] LABS: % Basophils 1.6 % (0-2); % Immature Granulocytes 0.4 % (0-0.5); % Lymphocytes 31.6 % (20.5-51.1); % Monocytes 5.9 % (1.7-9.3); % Neutrophils 56.5 % (42.2-75.2); Absolute Basophils 0.1 10^3/uL (0-0.2); Absolute Eosinophils 0.3 10^3/uL (0-0.7); Absolute Lymphocytes 2.2 10^3/uL (1.2-3.4); Absolute Monocytes 0.4 10^3/uL (0.1-0.6); Absolute Neutrophils 3.9 10^3/uL (1.4-6.5); Anisocytosis 3+; Macrocytosis 2+; Normal RBC Morphology No; Nucleated Red Blood Cells % 0 % (-); Target Cells Occasional
[2024-07-08 22:34] LABS: Ovalocytes 2+; Stomatocytes 2+; Tear Drop Red Blood Cells 1+
== END ==
LOC: OIDL 15:49
PROVIDERS: ATTENDING PHYSICIAN Internal Medicine Hematology & Oncology
DX: D50.8 Other iron deficiency anemias (principal)
CPT/HCPCS: 85025

== ENCOUNTER → 2024-07-15 14:09 | Outpatient (REF) | payer OTHER, SELFPAY ==
[2024-07-15 15:05] LABS: % Basophils 1.5 % (0-2); % Eosinophils 4.9 % (0-6); % Immature Granulocytes 0.2 % (0-0.5); % Lymphocytes 36.4 % (20.5-51.1); % Monocytes 6.2 % (1.7-9.3); % Neutrophils 50.8 % (42.2-75.2); Absolute Basophils 0.1 10^3/uL (0-0.2); Absolute Eosinophils 0.3 10^3/uL (0-0.7); Absolute Lymphocytes 1.9 10^3/uL (1.2-3.4); Absolute Monocytes 0.3 10^3/uL (0.1-0.6); Absolute Neutrophils 2.7 10^3/uL (1.4-6.5); Hemoglobin 10.8 g/dL (13.0-18.0); Mean Corpuscular Hgb 20.8 pg (27.0-31.0); Mean Corpuscular Volume 69.2 fL (80.0-94.0); Mean Platelet Volume 8.6 fL (7.4-10.4); Nucleated Red Blood Cells % 0 % (-); Platelet Count 319 10^3/uL (130-400); White Blood Cell Count 5.3 10^3/uL (4.8-10.8)
[2024-07-15 15:20] LABS: Acanthocytes 1+; Anisocytosis 2+; Ovalocytes 1+
[2024-07-15 15:22] LABS: Normal RBC Morphology No
== END ==
LOC: OIDL 14:09
PROVIDERS: ATTENDING PHYSICIAN Internal Medicine Hematology & Oncology
DX: D50.8 Other iron deficiency anemias (principal)
CPT/HCPCS: 85025

== ENCOUNTER → 2024-07-22 14:34 | Outpatient (REF) | payer OTHER, SELFPAY ==
[2024-07-22 14:52] LABS: % Basophils 1.6 % (0-2); % Eosinophils 5.4 % (0-6); % Immature Granulocytes 0.4 % (0-0.5); % Lymphocytes 32.4 % (20.5-51.1); % Monocytes 5.4 % (1.7-9.3); % Neutrophils 54.8 % (42.2-75.2); Absolute Basophils 0.1 10^3/uL (0-0.2); Absolute Eosinophils 0.3 10^3/uL (0-0.7); Absolute Lymphocytes 1.8 10^3/uL (1.2-3.4); Absolute Monocytes 0.3 10^3/uL (0.1-0.6); Absolute Neutrophils 3.1 10^3/uL (1.4-6.5); Hematocrit 39.1 % (39.0-52.0); Hemoglobin 11.8 g/dL (13.0-18.0); Mean Corp Hgb Conc. 30.2 g/dL (33.0-37.0); Mean Corpuscular Volume 69.6 fL (80.0-94.0); Mean Platelet Volume 8.5 fL (7.4-10.4); Nucleated Red Blood Cells % 0 % (-); Platelet Count 343 10^3/uL (130-400); Red Blood Cell Count 5.62 10^6/uL (4.70-6.10); Red Cell Dist. Width 24.7 % (11.5-14.5); White Blood Cell Count 5.6 10^3/uL (4.8-10.8)
== END ==
LOC: OIDL 14:34
PROVIDERS: ATTENDING PHYSICIAN Internal Medicine Hematology & Oncology
DX: D50.8 Other iron deficiency anemias (principal)
CPT/HCPCS: 85025

== ENCOUNTER → 2024-08-05 13:27 | Outpatient (REF) | payer OTHER, SELFPAY | LOC: RAD 13:27 | PROVIDERS: ATTENDING PHYSICIAN Physician Assistant Medical | DX: G54.0 Brachial plexus disorders (principal) | CPT/HCPCS: 71046 ==

== ENCOUNTER 2024-10-06 16:23 | Emergency (ER) | payer OTHER, SELFPAY ==
[2024-10-06 16:35] VITALS: BP 153/58
--- NOTE | 2024-10-06 16:44 | ED.GENMED ---
ED Provider Triage
<Dean Cabrera PA-C - Last Filed: 10/06/24 16:45>
-
Patient seen by provider in Triage?: Seen in Triage
29-year-old male presents with ongoing bloody stool for the past several days. He has a history of GI bleed had negative endoscopy colonoscopy and pill endoscopy. He notes mild and intermittent lower abdominal pain. Pain is not severe
Patient looks well upon assessment in triage. Will start with basic labs. Deferred on imaging for now
Patient evaluated by medical provider at triage, warrant further assessment
History of Present Illness
<Dean Cabrera PA-C - Last Filed: 10/06/24 16:45>
General
Chief Complaint: Rectal Bleeding
Time Seen by Provider: 10/06/24 21:19
<Emigdio James PA-C - Last Filed: 10/07/24 03:21>
History of Present Illness
History of Present Illness:
29-year-old male presents to the emergency department for evaluation of lower abdominal pain and trace visible blood in the stool for the past 5 to 6 days. He did have diarrhea preceding this. Prior history of GI bleed, underwent extensive GI
workup with endoscopy, colonoscopy, and PillCam or endoscopy with no findings. This was all performed by [facility] gastroenterology. He denies any vomiting or fevers during this course of illness. No recent antibiotics.
Past History
<Dean Cabrera PA-C - Last Filed: 10/06/24 16:45>
Past History
ED Past Medical History: Other (Cyclic vomiting syndrome)
ED Past Surgical History: None
Social History
Tobacco: Non-smoker
Alcohol: None
Review of Systems
<Emigdio James PA-C - Last Filed: 10/07/24 03:21>
Review of Systems
Allergies reviewed?: Yes
All Other Systems: ROS reviewed and negative except as documented in HPI and ROS
Phy Exam
<Emigdio James PA-C - Last Filed: 10/07/24 03:21>
Physical Exam
Physical Exam:
GEN: Well appearing, NAD, WDWN
HEENT: Oral mucosa moist, no scleral icterus
Cardiac: Regular rate
Lung: No respiratory distress, no tachypnea
Abdomen: Soft, mild tenderness diffusely to the lower abdomen
MSK: No gross deformity or injuries
Skin: Good color, no pallor or jaundice, no rashes
Neuro: AO x3, moves all extremities freely
Psych: Calm, cooperative
Course
<Dean Cabrera PA-C - Last Filed: 10/06/24 16:45>
Orders/Labs/Results
Orders:
Orders
10/06/24 16:47
Type+Screen Urgent
Complete Blood Count/With Diff Urgent
Comprehensive Metabolic Panel Urgent
Lipase Urgent
10/06/24 21:50
CT Abd/Pel (IV only)-DH only Urgent
Comment:
Reason For Exam: lower abd pain/rectal bleeding
Abnormal Lab Results
10/06/24
16:47
MCV 74.9 L fL
(80.0-94.0)
MCH 24.4 L pg
(27.0-31.0)
MCHC 32.6 L g/dL
(33.0-37.0)
RDW 15.1 H %
(11.5-14.5)
Abs Immat Gran (auto) 0.1 H 10^3/uL
(0-0.05)
Immature Gran % 1.5 H %
(0-0.5)
10/06/24 16:47
10/06/24 16:47
Vital Signs
Initial and Last Documented VS:
Initial Vital Signs
Temp Pulse Resp BP Pulse Ox
98.1 F 66 20 153/58 98
10/06/24 16:35 10/06/24 16:35 10/06/24 16:35 10/06/24 16:35 10/06/24 16:35
Last Documented Vital Signs
Temp Pulse Resp BP Pulse Ox
98.1 F 86 20 134/88 98
10/06/24 16:35 10/06/24 23:52 10/06/24 23:52 10/06/24 23:52 10/06/24 23:52
<Emigdio James PA-C - Last Filed: 10/07/24 03:21>
Orders/Labs/Results
Orders:
Orders
10/06/24 16:47
Type+Screen Urgent
Complete Blood Count/With Diff Urgent
Comprehensive Metabolic Panel Urgent
Lipase Urgent
10/06/24 21:50
CT Abd/Pel (IV only)-DH only Urgent
Comment:
Reason For Exam: lower abd pain/rectal bleeding
Abnormal Lab Results
10/06/24
16:47
MCV 74.9 L fL
(80.0-94.0)
MCH 24.4 L pg
(27.0-31.0)
MCHC 32.6 L g/dL
(33.0-37.0)
RDW 15.1 H %
(11.5-14.5)
Abs Immat Gran (auto) 0.1 H 10^3/uL
(0-0.05)
Immature Gran % 1.5 H %
(0-0.5)
10/06/24 16:47
10/06/24 16:47
Vital Signs
Initial and Last Documented VS:
Initial Vital Signs
Temp Pulse Resp BP Pulse Ox
98.1 F 66 20 153/58 98
10/06/24 16:35 10/06/24 16:35 10/06/24 16:35 10/06/24 16:35 10/06/24 16:35
Last Documented Vital Signs
Temp Pulse Resp BP Pulse Ox
98.1 F 86 20 134/88 98
10/06/24 16:35 10/06/24 23:52 10/06/24 23:52 10/06/24 23:52 10/06/24 23:52
<Emigdio James PA-C - Last Filed: 10/07/24 03:21>
MDM/Problems Addressed
MDM/Problems Addressed:
Unclear cause of rectal bleeding. Scan obtained showing no evidence for acute colitis. Prior history of GI bleed from occult source that was never identified. He is clinically stable with normal hemoglobin. Will refer to the GI hotline as an
outpatient for close follow-up
<Emigdio James PA-C - Last Filed: 10/07/24 03:21>
*Critical Care Note
Total Time (30-74mins, 75-104mins- exclusive of procedures): Not Applicable
ED Attending Note
<Dean Cabrera PA-C - Last Filed: 10/06/24 16:45>
-
Portions of this chart may have been created with voice recognition software.� Occasional wrong word or��sound alike� substitutions may have occurred due to the inherent limitations of voice recognition software.
Discharge Plan
Departure
Patient Disposition: Home (Routine Discharge)
Date of Disposition: 10/06/24
Time of Disposition: 23:42
Patient with high blood pressure during this ER visit?: No
Discharge Problem:
Rectal bleed
Instructions: Bloody Stools, Adult (DC)
Prescriptions:
No Action
omeprazole 40 mg Capsule,Delayed Release(Dr/Ec)
40 mg PO DAILY
ondansetron 4 mg Tablet,Disintegrating
4 mg PO DAILYPRN PRN (Reason: nausea)
acetaminophen 500 mg Tablet
1,000 mg PO Q6HPRN PRN (Reason: mild pain)
ferrous sulfate [iron] 325 mg (65 mg iron) tablet
325 mg PO DAILY 30 Days Qty: 30 2RF
Referrals:
Kiko Lester MD [Active] -
Issa Benson PA-C [Family Provider] -
Interventions
Interventions:
*Risk Screen - Suicide Last Done: 10/06/24 16:35
*General Assessment Last Done: 10/06/24 16:35
*Neglect/Abuse Screening Last Done: 10/06/24 16:35
*Nursing Disposition Last Done: 10/06/24 23:56
WU-Vyoozj-Ywhzrbkegz Assessment Last Done: 10/06/24 22:16
ED- Cardiac Assessment Last Done: 10/06/24 22:16
ED- Pulmonary Assessment Last Done: 10/06/24 22:16
Discharge Date and Time
Discharge Date/Time: 10/06/24 23:57
Print Language: TURKMEN
[2024-10-06 16:55] LABS: % Basophils 1.3 % (0-2); % Eosinophils 1.7 % (0-6); % Immature Granulocytes 1.5 % (0-0.5); % Lymphocytes 26.8 % (20.5-51.1); % Monocytes 4.6 % (1.7-9.3); % Neutrophils 64.1 % (42.2-75.2); Absolute Basophils 0.1 10^3/uL (0-0.2); Absolute Eosinophils 0.1 10^3/uL (0-0.7); Absolute Immature Granulocytes 0.1 10^3/uL (0-0.05); Absolute Lymphocytes 2.2 10^3/uL (1.2-3.4); Absolute Monocytes 0.4 10^3/uL (0.1-0.6); Absolute Neutrophils 5.3 10^3/uL (1.4-6.5); Hematocrit 39.9 % (39.0-52.0); Mean Corp Hgb Conc. 32.6 g/dL (33.0-37.0); Mean Corpuscular Hgb 24.4 pg (27.0-31.0); Mean Corpuscular Volume 74.9 fL (80.0-94.0); Mean Platelet Volume 8.4 fL (7.4-10.4); Nucleated Red Blood Cells % 0 % (-); Platelet Count 311 10^3/uL (130-400); Red Blood Cell Count 5.33 10^6/uL (4.70-6.10); Red Cell Dist. Width 15.1 % (11.5-14.5); White Blood Cell Count 8.3 10^3/uL (4.8-10.8)
[2024-10-06 17:12] LABS: ALT (SGPT) 22 U/L (0-50); AST (SGOT) 28 U/L (17-59); Albumin 4.9 g/dl (3.5-5.0); Alkaline Phosphatase 77 U/L (38-126); Blood Urea Nitrogen 10 mg/dl (9-20); Calcium 9.6 mg/dl (8.4-10.2); Carbon Dioxide 26 mmol/L (22-30); Chloride 103 mmol/L (98-107); Glucose 97 mg/dl (70-99); Lipase 91 U/L (23-300); Potassium 4.1 mmol/L (3.5-5.1); Sodium 139 mmol/L (135-145); Total Bilirubin 0.5 mg/dl (0.2-1.3); Total Protein 7.9 g/dl (6.3-8.2); eGFR > 60.00
[2024-10-06 23:52] VITALS: BP 134/88
== END 2024-10-06 23:57 | disposition home or self-care (01) ==
LOC: EMR 16:23
PROVIDERS: Physician Assistant; EMERGENCY PHYSICIAN Emergency Medicine; FAMILY PHYSICIAN Physician Assistant Medical
DX: K92.1 Melena (principal)
CPT/HCPCS: 99284; 74177; 80053; 83690; 85025; 86850; 86900; 86901; Q9967

== ENCOUNTER 2025-05-15 13:27 | Inpatient (IN) | payer BC, SELFPAY ==
[2025-05-15] VITALS (13 sets, daily range): BP systolic 108–154; BP diastolic 65–77
--- NOTE | 2025-05-15 10:54 | ED.GENMED ---
History of Present Illness
<Michel Clancy MD, Resident - Last Filed: 05/15/25 12:49>
General
Chief Complaint: Abnormal Lab Value
Source: patient
Exam Limitations: none
Time Seen by Provider: 05/15/25 10:38
History of Present Illness
History of Present Illness:
29 year old male with a past medical history of GI bleeds, and cyclic vomiting syndrome comes to the ED due to recent history of light headedness, weakness, and shortness of breath on exertion that has been going on for the past few days. He says
the symptoms are very close to what he usually has when he is severely anemic in the past. Patient also reported having black stool this morning upon waking up as well as having chills and sweating. As per his significant other, patient has been
pale and sometimes even yellow in color, mainly when he gets up from laying down too fast. He has been having nausea along with an instance of sharp left sided abdominal pain two weeks ago that came due to constipation. The pain is much better now
but still remains in the left lower quadrant. He has been having some mild headache and migraines which he has managed with Excedrin effectively, the last one being on Thursday. He has been following Hematology (Dr. Baker) and GI (Dr. Maddox).
Past History
<Michel Clancy MD, Resident - Last Filed: 05/15/25 12:49>
Past History
ED Past Medical History: Other (GI Bleeding from unknown source) and Other (Cyclic vomiting syndrome)
ED Past Surgical History: None
Social History
Tobacco: Non-smoker
Alcohol: None
Drug: Marijuana (~1g a day)
Review of Systems
<Michel Clancy MD, Resident - Last Filed: 05/15/25 12:49>
Review of Systems
Allergies reviewed?: Yes
Constitutional: Reports fatigue and chills; Denies fever
EENT: Reports no symptoms
Cardiac: Reports chest pain; Denies palpitations
ABD/GI: Reports abdominal pain (Left lower quadrant), nausea, vomiting, constipated and black stools
: Reports no symptoms
Musculoskeletal: Reports no symptoms
Skin: Reports no symptoms
Neurological: Reports headache and weakness
Endocrine: Reports no symptoms
Hematologic/Lymphatic: Reports no symptoms
Psychiatric: Reports no symptoms
Phy Exam
<Michel Clancy MD, Resident - Last Filed: 05/15/25 12:49>
General Physical Exam
General Presentation: mild distress
General Skin: warm and dry
General Habitus: normal
General Mental: alert
General Hydration: appears well hydrated
Cardiovascular Exam
Cardiovascular Exam: regular rate/rhythm, no edema, no gallop and no murmur
Pulmonary Exam
Pulmonary Exam: lungs clear, no respiratory distress, no rales, no crackles, no rhonchi and no wheezing
Gastrointestinal Exam
Gastrointestinal Exam: soft and non distended
Palpation: left lower quadrant: Mild tenderness
Rectal Exam: normal external exam, normal sphincter tone and soft stool
Stool: black
Guaiac Status: positive
Scores
<Michel Clancy MD, Resident - Last Filed: 05/15/25 12:49>
GI Bleed
History of cardiac failure?: No
History of hepatic failure?: No
History of recent syncope?: No
Pulse >100?: No
SBP <110?: No
Course
<Michel Clancy MD, Resident - Last Filed: 05/15/25 12:49>
Orders/Labs/Results
Orders:
Orders
05/15/25 11:15
Type And Crossmatch [Type+Screen] Urgent
Complete Blood Count/With Diff Urgent
Comprehensive Metabolic Panel Urgent
05/15/25 12:12
* Blood Bank Products Urgent
Blood Bank Products: *Packed RBC Leuko(PRBC's)
Quantity: 1unit
Transfuse Today: Yes
Reason: Anemia
Abnormal Lab Results
05/15/25
11:15
RBC 3.70 L 10^6/uL
(4.70-6.10)
Hgb 6.0 L* g/dL
(13.0-18.0)
Hct 23.0 L %
(39.0-52.0)
MCV 62.2 L fL
(80.0-94.0)
MCH 16.2 L pg
(27.0-31.0)
MCHC 26.1 L g/dL
(33.0-37.0)
RDW 19.3 H %
(11.5-14.5)
Chloride 108 H mmol/L
(98-107)
Crossmatch IS Only See Detail
05/15/25 11:15
05/15/25 11:15
Vital Signs
Initial and Last Documented VS:
Initial Vital Signs
Temp Pulse Resp BP Pulse Ox
98 F 71 16 154/66 100
05/15/25 10:16 05/15/25 10:16 05/15/25 10:16 05/15/25 10:16 05/15/25 10:16
Last Documented Vital Signs
Temp Pulse Resp BP Pulse Ox
98 F 71 16 154/66 100
05/15/25 10:16 05/15/25 10:16 05/15/25 10:16 05/15/25 10:16 05/15/25 10:54
<Kylee Oviedo, DO - Last Filed: 05/15/25 12:08>
Orders/Labs/Results
Orders:
Orders
05/15/25 11:15
Type And Crossmatch [Type+Screen] Urgent
Complete Blood Count/With Diff Urgent
Comprehensive Metabolic Panel Urgent
05/15/25 12:12
* Blood Bank Products Urgent
Blood Bank Products: *Packed RBC Leuko(PRBC's)
Quantity: 1unit
Transfuse Today: Yes
Reason: Anemia
Abnormal Lab Results
05/15/25
11:15
RBC 3.70 L 10^6/uL
(4.70-6.10)
Hgb 6.0 L* g/dL
(13.0-18.0)
Hct 23.0 L %
(39.0-52.0)
MCV 62.2 L fL
(80.0-94.0)
MCH 16.2 L pg
(27.0-31.0)
MCHC 26.1 L g/dL
(33.0-37.0)
RDW 19.3 H %
(11.5-14.5)
Chloride 108 H mmol/L
(98-107)
Crossmatch IS Only See Detail
05/15/25 11:15
05/15/25 11:15
Vital Signs
Initial and Last Documented VS:
Initial Vital Signs
Temp Pulse Resp BP Pulse Ox
98 F 71 16 154/66 100
05/15/25 10:16 05/15/25 10:16 05/15/25 10:16 05/15/25 10:16 05/15/25 10:16
Last Documented Vital Signs
Temp Pulse Resp BP Pulse Ox
98 F 71 16 154/66 100
05/15/25 10:16 05/15/25 10:16 05/15/25 10:16 05/15/25 10:16 05/15/25 10:54
<Michel Clancy MD, Resident - Last Filed: 05/15/25 12:49>
MDM/Problems Addressed
Differential Diagnosis Includes:
Upper GI Bleed, Gastroenteritis, Constiptation from Iron use, Cyclic Vomiting Syndrome
MDM/Problems Addressed:
29 year old male comes in with feeling light-headed and short of breath upon exertion. Has felt like this in the past when he has been anemic.
Will check CBC, CMP, and Type+Screen in case he needs a transfusion
Patient needs to follow up with GI in the outpatient setting for continued workup of his condition
Continue symptomatic relief
Hgb 6.0, contacted Dr. Maddox (GI) regarding if he needs to be admitted
She says that patient will need a push enteroscopy and needs to be admitted
Will transfuse 1 unit of blood in the meanwhile
<Michel Clancy MD, Resident - Last Filed: 05/15/25 12:49>
*Pulse Oximetry
SaO2: 100
Oxygen Mode of Delivery: Room air
Patient hypoxic: no
*Critical Care Note
Total Time (30-74mins, 75-104mins- exclusive of procedures): Not Applicable
<Kylee Oviedo DO - Last Filed: 05/15/25 12:08>
*Critical Care Note
Total Time (30-74mins, 75-104mins- exclusive of procedures): 36
comment:
The high probability of a clinically significant, sudden or life threatening deterioration of the hematologic system(s) required my full and direct attention, intervention and personal management. The aggregate critical care time was 36 minutes.
This time is in addition to time spent performing reported procedures but includes the following:
[x] Data Review and interpretation
[x] Patient assessment and monitoring of vital signs
[x] Documentation
[x] Medication orders and management
ED Attending Note
<Michel Clancy MD, Resident - Last Filed: 05/15/25 12:49>
-
Portions of this chart may have been created with voice recognition software.� Occasional wrong word or��sound alike� substitutions may have occurred due to the inherent limitations of voice recognition software.
<Kylee Oviedo, - Last Filed: 05/15/25 12:08>
ED Attending Note
Patient seen and examined by attending physician: Yes
I performed the substantive portion of visit, reviewed & personally made and approve the management plan that is documented in note by myself or ERIC.: Yes
I performed a history and physical exam of patient and discussed management with resident, I reviewed resident's note and agree with documented findings and plan of care.: Yes
ED Attending Note:
29-year-old male with history of anemia presenting to the emergency department for concern of low blood counts. Patient reports in the past 2 weeks he has been feeling short of breath, fatigued, pale. He has felt similarly when his blood counts
have been low. He was last transfused about 2 months ago and his blood counts were in the 5 range 2 units and discharged home. He has been following with GI. Has also seen hematology in the past. Notes relatively unremarkable workup, has had
endoscopy, colonoscopy and small bowel study. He is not on any blood thinners. He is supposed to be on iron, however does not take it because he also has cyclic vomiting and feels that it worsens his vomiting. Notes this morning he started to
have dark stool. Vital signs on arrival are normal.
On exam patient is resting comfortably, no acute distress. Unremarkable cardiac and pulmonary exam. No tenderness to abdomen. He is slightly pale in appearance. Hemoccult positive, dark stool. On review of colonoscopy in 2022, no significant
findings. Unclear etiology of patient's persistent anemia, notes that he has had dark stools in the past as well. Plan for laboratory analysis with a transfusion.
12:00 - Hemoglobin is 6.0. Will plan for transfusion and discussed with GI
12:10 - Per GI, recommending admission for push enteroscopy. Will admit to hospital service
Discharge Plan
Departure
Patient Disposition: Admit
Date of Disposition: 05/15/25
Time of Disposition: 12:23
Admit to: Med/Surg
Presentation/result/management discussed w/ accepting MD/DO: Hospitalist
Patient with high blood pressure during this ER visit?: Yes
Condition: Good
Discharge Problem:
Symptomatic anemia
Prescriptions:
No Action
pantoprazole [Protonix] 40 mg Tablet,Delayed Release (Dr/Ec)
40 mg PO DAILY
ondansetron [Zofran ODT] 4 mg Tablet,Disintegrating
4 mg PO Q6HPRN PRN (Reason: nausea)
Referrals:
Issa Benson PA-C [Family Provider]
Interventions
Interventions:
*Risk Screen - Suicide Last Done: 05/15/25 10:17
*Neglect/Abuse Screening Last Done: 05/15/25 10:17
Discharge Date and Time
Print Language: [id number]
[2025-05-15 11:41] LABS: Hematocrit 23.0 % (39.0-52.0); Hemoglobin 6.0 g/dL (13.0-18.0); Mean Corp Hgb Conc. 26.1 g/dL (33.0-37.0); Mean Corpuscular Volume 62.2 fL (80.0-94.0); Nucleated Red Blood Cells % 0 % (-); Platelet Count 343 10^3/uL (130-400); Red Cell Dist. Width 19.3 % (11.5-14.5)
[2025-05-15 11:45] LABS: ALT (SGPT) 11 U/L (0-50); AST (SGOT) 20 U/L (17-59); Albumin 4.9 g/dl (3.5-5.0); Alkaline Phosphatase 46 U/L (38-126); Blood Urea Nitrogen 9 mg/dl (9-20); Calcium 9.0 mg/dl (8.4-10.2); Carbon Dioxide 25 mmol/L (22-30); Chloride 108 mmol/L (98-107); Glucose 72 mg/dl (70-99); Potassium 4.0 mmol/L (3.5-5.1); Sodium 140 mmol/L (135-145); Total Protein 7.4 g/dl (6.3-8.2); eGFR > 60.00
--- NOTE | 2025-05-15 12:31 | HPS.HSE ---
Addendum entered and electronically signed by Maile Adames MD 05/15/25 13:20:
see update note
Original Note:
Family Physician
-
Family Physician: YESENIA NEWELL PA-C
Chief Complaint
-
Lightheaded, black stool today
History of Present Illness
29 year old male complaining of feeling lightheaded and fatigue with black stools today. He denies any recent NSAID use, aspirin, Pepto-Bismol. He had hx of recurrent anemia requiring multiple blood transfusions. His hgb is 6.0. He has a history
of iron deficiency anemia diagnosed in September 2023 but stopped supplements due to constipation. He had capsule Endo prior EGD September 2023 which was negative.He was treated in May 2024 evaluated by hematology and states he received 5
transfusions of iron. He had negative celiac panel at that time. He reports following up with hematology and told that he had a' leaky gut' and was advised to come in when he felt he needed an infusion. The patient did not feel comfortable with
that answer as he was unsure why his blood count Dropping and believed he was losing blood. I made him aware that the body does use blood to function on a daily basis however he has a manufacturing issue due to his iron deficiency and if not
repleted his hemoglobin will naturally drop. I made it very clear he will need lifelong iron transfusions. His was present at bedside during this discussion. He also states he uses marijuana daily does not feel it is contributing to his
cyclical vomiting since he states he has had since age 10. He also reports history of anxiety, cyclical vomiting, marijuana use, iron deficiency anemia, anemia requiring blood transfusions.
He denies headache, fever, chills, chest pain, palpitations, cough, shortness of breath, abdominal pain, nausea, vomiting, diarrhea, constipation, urinary symptoms.
Medical History
Past Medical History
Past Medical History: Reports Other
Additional Past Medical History:
anxiety
cyclical vomiting since age 10
marijuana use
iron deficiency anemia
anemia requiring blood transfusions.
Past Surgical History: Reports Other
Additional Past Surgical History:
EGD capsule Endo, colonoscopy September 2023
Missing teeth extraction
Social History
Tobacco: Other (Marijuana)
Alcohol: None
Drug: Marijuana (Daily)
Personal:
Living: With Family ()
Employment: Employed
Family History
Family History: Other (Mother RA, father HTN, brother [place] late 40s)
Allergies / Home Medications
Allergies reflects when Allergies were last updated in [employer].
Home Medications with original date entered in [employer]
Allergy/Medication List:
Allergies
Allergy/AdvReac Type Severity Reaction Status Date / Time
No Known Allergies Allergy Verified 10/06/24 16:38
Home Medications
ondansetron 4 mg disintegrating tablet 4 mg PO Q6HPRN PRN nausea 05/15/25
pantoprazole 40 mg tablet,delayed release (Protonix) 40 mg PO DAILY 05/15/25
Review of Systems
-
History Source: Patient and Family ( at bedside)
A 12 point ROS was completed and negative except as noted: Yes
Constitutional: Denies Fever or Chills
EENT: Denies Sore Throat or Runny Nose
Respiratory: Denies Cough or Trouble Breathing
Cardiac: Denies Chest Pain, Diaphoresis, Palpitations or Syncope
Abdomen/GI: Reports Black Stools (Today); Denies Abdominal Pain, Nausea, Vomiting, Diarrhea or Constipated
: Denies Dysuria, Frequency, Flank Pain or Incontinence
Musculoskeletal: Denies Joint Pain or Edema
Neurological: Reports Dizzy
Endocrine: Reports No Symptoms
Hematologic/Lymphatic: Reports No Symptoms and Bleeding
Psych: Reports Calm
Physical Exam
Vital Signs
Vital Signs
Temp Pulse Resp BP Pulse Ox
98 F 71 16 154/66 100
05/15/25 10:16 05/15/25 10:16 05/15/25 10:16 05/15/25 10:16 05/15/25 10:54
Physical Exam
General: Comfortable and Conversant; No Pain, Fever, Chills or Sweats
HEENT: NormoCephalic, Anicteric, Moist mucous membranes, PERRLA and No Ptosis
Respiratory: Clear; No Wheezes, Rales or Rhonchi
Cardiac: S1/S2 and Regular Rhythm
Breast: Deferred by me
GI: Soft, Non Tender, Non Distended and Normal Bowel Sounds
Rectal: Hem Positive (Black stool per ER)
Genito-urinary: Deferred by me
Musculoskeletal: No Clubbing, No Cyanosis and No Edema
Skin: Warm and Dry; No Rash or Jaundice
Neuro: AO x 3, No Motor Deficits, Nonfocal/grossly intact, Cranial Nerves Intact and No Sensory Deficits; No Facial Droop or Tremors
Psych: Calm
Laboratory Results
-
05/15/25 11:15
05/15/25 11:15
Laboratory Results
Total Bilirubin 0.4 mg/dl (0.2-1.3) 05/15/25 11:15
AST 20 U/L (17-59) 05/15/25 11:15
ALT 11 U/L (0-50) 05/15/25 11:15
Alkaline Phosphatase 46 U/L (38-126) 05/15/25 11:15
Data Reviewed
-
Lab Data: Labs Reviewed by me
Impression/Plan
-
Impression/plan:
Admit to MedSurg
#GI bleed
#History of recurrent anemia requiring multiple transfusions due to iron deficiency
#History of capsule endo-September 2023 negative
Hgb 6, MCV 62.2
- Check iron panel, B12, folate
- Type and screen, obtain blood consent
- Transfuse 2 units PRBCs
-Clears no red or purple
- N.p.o. after midnight
- Consult GI
- Endoscopy in a.m.
- IV Protonix 40 mg twice daily
- Follow CBC, BMP
#History iron deficiency anemia
5 IV transfusions May 2024 does not take daily supplementation, has not followed up with heme
-IV panel pending likely will require IV iron transfusions inpatient
#Cyclical vomiting
- Patient reports since age 10
#Marijuana use
- Advised cessation
#Migraine headaches
- Takes occasional Motrin or Excedrin the last use was 2 weeks ago
#History anxiety
No reported medication uses marijuana
Other PMH
Prior history of chlamydia
DVT prophylaxis
SCDs
Full code
--- NOTE | 2025-05-15 13:20 | W.PN.UPDATE ---
Update Note
Progress Note Update
I saw and examined the patient.
The NICKING MACHINE OPERATOR Sherrie's note was reviewed and I agree with the note.
Comment: 29 y/o M hx of MJ use with Cyclic vomiting, chronic EMILY (followed previously with Hematology and received blood and iron transfusions) presents to ER with dark stools and symptomatic anemia (Hb 6.0). Symptoms included lightheadedness,
weakness and SOB that began Thursday. Prior GI workup negative in September 2023.
In ER, 2 units of PRBC ordered. GI contacted and planning EGD/Push Enteroscopy in AM.
General: Comfortable and Conversant; No Pain, Fever, Chills or Sweats
HEENT: Normocephalic, Anicteric, Moist mucous membranes, PERRLA and No Ptosis
Respiratory: Clear; No Wheezes, Rales or Rhonchi
Cardiac: S1/S2 and Regular Rhythm
Breast: Deferred by me
GI: Soft, Non Tender, Non Distended and Normal Bowel Sounds
Rectal: Hem Positive (Black stool per ER)
Genito-urinary: Deferred by me
Musculoskeletal: No Clubbing, No Cyanosis and No Edema
Skin: Warm and Dry; No Rash or Jaundice
Neuro: AO x 3, No Motor Deficits, Nonfocal/grossly intact, Cranial Nerves Intact and No Sensory Deficits; No Facial Droop or Tremors
Psych: Calm
Plan: Admit med/surg floor. check anemia labs. transfuse 2 unit PRBC. Follow CBC. IV PPI BID. GI consult for EGD/Push Enteroscopy in AM; NPO p MN - ok for clears (no reds). IV Iron tomorrow.
[2025-05-15 13:59] LABS: Iron < 20 ug/dl (49-181)
[2025-05-15 14:01] LABS: Total Iron Binding Capacity 425 ug/dl (261-462)
[2025-05-15 14:58] LABS: Ferritin 2.9 ng/ml (17.9-464.0)
[2025-05-15 15:29] LABS: Folate 5.8 ng/ml (2.76-20); Vitamin B12 525 pg/ml (239-931)
--- NOTE | 2025-05-15 16:42 | CON.GI ---
Consultation
-
Date/Time Consultation Requested: 05/15/2025, 1pm
Date/Time Consultation Performed: 05/15/2025, 5pm
Requesting Provider: Sherrie GILES
Performing Provider: Dr. Maddox
Reason for Consultation: obscure GIB
Medical History
Chief Complaint / HPI
Chief Complaint: melena
History of Present Illness:
29-year-old male past medical history of cyclical vomiting syndrome, IBS who is my outpatient who has history of obscure GI bleeding with no source found. He is underwent multiple endoscopies and colonoscopies below. He is coming in with melena
and weakness. Found to have hemoglobin of 6.
Had first episode of bleeding in September 2023 had workup as below. This was in the setting of Excedrin. In May 2024 he went to emergency room with headache, lightheadedness and pallor found to have a hemoglobin of 7.5. Hematology saw the
patient and recommended repeat GI evaluation. Went to the emergency room June 2024 at that point, his hemoglobin was 8.9 and he was discharged with outpatient follow-up. Went to ER September 2024 for rectal bleeding at that point his
hemoglobin was 13. Went to [facility] March 2025 (do not have these records) got 2UPRBC then (no black stool, weakness, fatigue).
In terms of his cyclical vomiting syndrome, he has not vomited in 2 weeks. He had that episode then where he had severe left-sided pain and constipation although he had a bowel movement 24 hours before. When he had a bowel movement and vomiting,
pain improved. He has some maybe mild lingering pain today.
GI WORK UP:
Upper endoscopy September 2023 done by me normal.
Colonoscopy September 2023 Dr. Reno normal colon normal terminal ileum.
Capsule endoscopy September 2023 normal. Some erythema in the bowel but no clear source of anemia.
Past Medical History
Past Medical History: Other ([facility], IBS)
Past Surgical History: None
Social History
Tobacco: Non-Smoker
Alcohol: None
Drug: Marijuana
Family History
Family History: Reviewed & Not Pertinent
Allergies / Home Medications
Allergy/AdvReac Type Severity Reaction Status Date / Time
No Known Allergies Allergy Verified 10/06/24 16:38
�Medication �Instructions �Recorded
ondansetron 4 mg disintegrating 4 mg PO Q6HPRN PRN nausea 05/15/25
tablet
pantoprazole 40 mg tablet,delayed 40 mg PO DAILY 05/15/25
release (Protonix)
Review of Systems
-
All other systems: A 12 pt ROS was Negative except as stated above in HPI
Vital Signs
Temp Pulse Resp BP Pulse Ox
98.1 F 73 20 124/75 100
05/15/25 16:15 05/15/25 16:15 05/15/25 16:15 05/15/25 16:15 05/15/25 16:15
Physical Exam
Exam
General: Well Developed
HEENT: Normocephalic
Respiratory: Clear
Cardiac: Regular Rhythm
GI: Non Tender and Non Distended
Genito-urinary: No Costovertebral Tender
Musculoskeletal: No Clubbing
Skin: Warm
Neuro: AO x 3
Hematologic/Lymphatic: No Lymphadenopathy
Psych: Calm
Results
WBC 6.0 10^3/uL (4.8-10.8) 05/15/25 11:15
Hgb 6.0 g/dL (13.0-18.0) L* 05/15/25 11:15
Hct 23.0 % (39.0-52.0) L 05/15/25 11:15
MCV 62.2 fL (80.0-94.0) L 05/15/25 11:15
Plt Count 343 10^3/uL (130-400) 05/15/25 11:15
Absolute Neuts (auto) 3.5 10^3/uL (1.4-6.5) 05/15/25 11:15
Sodium 140 mmol/L (135-145) 05/15/25 11:15
Potassium 4.0 mmol/L (3.5-5.1) 05/15/25 11:15
Chloride 108 mmol/L (98-107) H 05/15/25 11:15
Carbon Dioxide 25 mmol/L (22-30) 05/15/25 11:15
BUN 9 mg/dl (9-20) 05/15/25 11:15
Creatinine 0.8 mg/dL (0.7-1.3) 05/15/25 11:15
Calcium 9.0 mg/dl (8.4-10.2) 05/15/25 11:15
Total Bilirubin 0.4 mg/dl (0.2-1.3) 05/15/25 11:15
AST 20 U/L (17-59) 05/15/25 11:15
ALT 11 U/L (0-50) 05/15/25 11:15
Alkaline Phosphatase 46 U/L (38-126) 05/15/25 11:15
Diagnostic Image Results:
Prior GI Procedures:
EGD:
Colonoscopy:
Assessment / Plan
-
29 yo M with recurrent obscure GIB.
Plan push enteroscopy for further evaluation tomorrow - tattoo distal extent. Risk, alternatives, benefits discussed with patient risks including but not limited to bleeding, infection, perforation.
In regards to his abdominal pain, this is much improved. If persists or recurs, may benefit from CT scan. Told patient to call me if he has recurrence and we can also get urgent CT scan outpatient.
-
-
Thank you for consultation and allowing me to participate in the patient's care. Please call the application support GI physician during the after hours with any questions or concerns.
--- NOTE | 2025-05-15 17:01 | PTCARENOTE ---
Patient admitted to 4W from ER, ambulated from stretcher to bed, AAOx3, significant other at bedside. Patient reporting some mild dizziness while standing, but denies any other complaints including pain. Oriented patient to room and plan of care.
[2025-05-15] MEDS: ZOFRAN 4 MG IV (17:38)
--- NOTE | 2025-05-15 17:47 | PTCARENOTE ---
Patient repoerting feeling warm and nauseous, 236cc of blood transfused. VSS: T 98.3, BP 118/75, HR 74, O2 100%. Paused transfusion and zofran administered. MD notified, instructed to resume transfusion in 30 minutes and continue to monitor. Patient
reports immediate symptom relief.
[2025-05-15] MEDS: PROTONIX IV 40 MG IV (21:30)
[2025-05-15] MEDS: NSS (PRESERVATIVE FREE) 10 ML IV (21:30)
[2025-05-16] VITALS (15 sets, daily range): BP systolic 77–125; BP diastolic 47–73
[2025-05-16 07:33] LABS: Hematocrit 27.6 % (39.0-52.0); Hemoglobin 7.9 g/dL (13.0-18.0); Mean Corp Hgb Conc. 28.6 g/dL (33.0-37.0); Mean Corpuscular Volume 65.2 fL (80.0-94.0); Nucleated Red Blood Cells % 0 % (-); Platelet Count 331 10^3/uL (130-400); Red Cell Dist. Width 21.9 % (11.5-14.5)
[2025-05-16] MEDS: NSS (PRESERVATIVE FREE) 10 ML IV ×2 (07:53→20:48)
[2025-05-16] MEDS: PROTONIX IV 40 MG IV ×2 (07:53→20:48)
[2025-05-16 07:59] LABS: Blood Urea Nitrogen 9 mg/dl (9-20); Calcium 9.3 mg/dl (8.4-10.2); Carbon Dioxide 27 mmol/L (22-30); Chloride 108 mmol/L (98-107); Glucose 90 mg/dl (70-99); Potassium 4.3 mmol/L (3.5-5.1); Sodium 141 mmol/L (135-145); eGFR > 60.00
--- NOTE | 2025-05-16 08:00 | W.PN.HOSP.TC ---
Today's Communication/Plan
-
Monitor H&H
IV iron infusion
diet MRI as per GI
Assessment / Plan
Assessment / Plan
Physical Exam
General: No acute distress, appears comfortable
HEENT: NormoCephalic, Anicteric, Moist mucous membranes, PERRLA and No Ptosis
Respiratory: Clear; No Wheezes, Rales or Rhonchi
Cardiac: S1/S2 and Regular Rhythm
GI: Soft, Non Tender, Non Distended and Normal Bowel Sounds
Musculoskeletal: No Clubbing, No Cyanosis and No Edema
Skin: Warm and Dry; No Rash or Jaundice, Pallor noted
Neuro: AO x 3 conversant coherent
Psych: Calm
29M EMILY Marijuana use here for symptomatic severe anemia with associate black stools concerning for GIB.
#GI bleed
#History of recurrent anemia requiring multiple transfusions due to iron deficiency
#History of capsule endo-September 2023 negative
Initial Hgb 6, MCV 62.2
- Iron studies note severe Iron deficiency
- B12, folate wnl
- Transfused 2 units PRBCs w/ appropriate response noted
- IV Protonix 40 mg twice daily
- Monitor H&H
Consult GI appreciated s/p EGD 05/16
-two polypoid lesions 4th Duodenum vs Proximal Jejunum biopsied
-No NSAIDs 7 days after bx
-Clear liquid diet to advance as tolerated to Low residue
-MR enterography
-outpt capsule endoscopy
#History iron deficiency anemia
5 IV transfusions May 2024 does not take daily supplementation, has not followed up with heme
-IV iron infusions while inpt
-outpt heme follow up recommended
#Cyclical vomiting
- Patient reports since age 10
#Marijuana use
- Advised cessation
#History anxiety
uses marijuana
DVT prophylaxis
SCDs
Full code
Discussed with patient and patient's father Derek at bedside
I spent a total of 50 minutes with the patient or on the floor. More than 50% of this time involved counseling and coordination of care.
Anticipated Discharge: 24 - 48 hours
Subjective/Interval History
-
Date of Service: May 16, 2025
No acute distress, sitting up comfortably in bed. Overall reports feeling well. Denies new acute issues. Patient's Father Derek present during evaluation.
Objective Data
-
Labs:
Laboratory Results
05/16/25
06:02
WBC 7.4
Hgb 7.9 L D
Hct 27.6 L
Plt Count 331
Sodium 141
Potassium 4.3
Chloride 108 H
Carbon Dioxide 27
BUN 9
Creatinine 1.0
Glucose 90
Calcium 9.3
Vital Signs:
Vital Signs
Temp Pulse Resp BP Pulse Ox
98 F 72 18 119/67 100
05/16/25 00:38 05/16/25 00:38 05/16/25 00:38 05/16/25 00:38 05/15/25 23:15
I&O
05/15/25 05/16/25 05/17/25
06:59 06:59 06:59
Intake Total 650 / 650
Balance 650 / 650
[2025-05-16 08:26] LABS: Anisocytosis 1+; Hypochromasia 1+; Normal RBC Morphology No; Ovalocytes Slight; Polychromasia Slight
--- NOTE | 2025-05-16 12:45 | CM ---
Patient seen bedside, initial assessment completed. Patient is a 29 year old male complaining of feeling lightheaded and fatigue with black stools.
Patient resides w/ his significant other in a 1st flr apartment, 1 step to enter the building. Patient independent in all areas. No therapy hx. No equipment reported.
Address, points of contacts and insurance verified
PCP: Issa Benson
Pharmacy: [facility]
Plan: Home, no needs when stable
[2025-05-16] MEDS: FERRLECIT 110 MG IV (13:27)
[2025-05-17 07:00] VITALS: BP 113/74
--- NOTE | 2025-05-17 07:35 | W.PN.HOSP.TC ---
Today's Communication/Plan
-
discharge
Assessment / Plan
Assessment / Plan
Physical Exam
General: No acute distress, appears comfortable
HEENT: NormoCephalic, Anicteric, Moist mucous membranes, PERRLA and No Ptosis
Respiratory: Clear; No Wheezes, Rales or Rhonchi
Cardiac: S1/S2 and Regular Rhythm
GI: Soft, Non Tender, Non Distended and Normal Bowel Sounds
Musculoskeletal: No Clubbing, No Cyanosis and No Edema
Skin: Warm and Dry; No Rash or Jaundice, Pallor significantly improved/resolved
Neuro: AO x 3 conversant coherent
Psych: Calm
29M EMILY Marijuana use here for symptomatic severe anemia with associate black stools concerning for GIB.
#GI bleed
#History of recurrent anemia requiring multiple transfusions due to iron deficiency
#History of capsule endo-September 2023 negative
Initial Hgb 6, MCV 62.2
- Iron studies noted severe Iron deficiency
- B12, folate wnl
- Transfused 2 units PRBCs w/ appropriate response noted
- IV Protonix 40 mg twice daily
- Monitor H&H
Consult GI appreciated s/p EGD 05/16
-two polypoid lesions 4th Duodenum vs Proximal Jejunum biopsied
-No NSAIDs 7 days after bx
-Clear liquid diet advanced as tolerated to Low residue
-MR enterography study obtained, results pending
-per GI, pending pathology and MR study results, possible outpt follow up advanced endoscopy team downtown regarding double-balloon enteroscopy and removal of the polypoid lesions in the small bowel.
#History iron deficiency anemia
5 IV transfusions May 2024 does not take daily supplementation, has not followed up with heme
-IV iron infusions while inpt, received 2 doses
-outpt heme follow up recommended
#Cyclical vomiting
- Patient reports since age 10
#Marijuana use
- Advised cessation
#History anxiety
uses marijuana
DVT prophylaxis
SCDs
Full code
Medically stable, patient reports having a custody court hearing he has to report to in [place] tomorrow 05/18. H&H trending up. MRI study results remains pending. Discussed with patient, if discharged, potentially he may need to be
called back should MRI results show alarming findings that require urgent attention/evaluation/treatment. Patient able to verbalize his understanding of risk and also verbalized his willingness to comply with recall back to hospital if necessary.
Confirmed [phone] cell phone number best number to reach patient in case of emergency. patient AOx3 at capacity to make his own medical decisions, discharged as per patient's wishes with outpatient follow up recommendations.
Discussed with patient and patient's mother Daniela at bedside
Total Time Preparing Discharge __40 minutes including examination of the patient, summary of the hospital stay, instructions for continuing care to all relevant caregivers; and preparation of discharge records, prescriptions, and referral
forms if necessary.
Anticipated Discharge: Today
Subjective/Interval History
-
Date of Service: May 17, 2025
no acute distress, sitting up comfortably in bed. Overall reports feeling well. Denies new acute issues. Eager to go home. Significant improvement pallor noted/resolved.
Objective Data
-
Labs:
Laboratory Results
05/17/25
06:54
WBC Pending
Hgb Pending
Hct Pending
Plt Count Pending
Sodium Pending
Potassium Pending
Chloride Pending
Carbon Dioxide Pending
BUN Pending
Creatinine Pending
Glucose Pending
Calcium Pending
Vital Signs:
Vital Signs
Temp Pulse Resp BP Pulse Ox
98.2 F 98 18 115/61 99
05/16/25 23:47 05/16/25 23:47 05/16/25 23:47 05/16/25 23:47 05/16/25 23:47
I&O
05/16/25 05/17/25 05/18/25
06:59 06:59 06:59
Intake Total 650 / 650 0 / 176
Balance 650 / 650 0 / 176
[2025-05-17] MEDS: PROTONIX IV 40 MG IV (07:37)
[2025-05-17] MEDS: NSS (PRESERVATIVE FREE) 10 ML IV (07:40)
[2025-05-17 08:04] LABS: Hematocrit 29.5 % (39.0-52.0); Hemoglobin 8.3 g/dL (13.0-18.0); Mean Corp Hgb Conc. 28.1 g/dL (33.0-37.0); Mean Corpuscular Volume 65.7 fL (80.0-94.0); Nucleated Red Blood Cells % 0 % (-); Platelet Count 313 10^3/uL (130-400); Red Cell Dist. Width 22.1 % (11.5-14.5)
[2025-05-17 08:35] LABS: Blood Urea Nitrogen 9 mg/dl (9-20); Calcium 9.1 mg/dl (8.4-10.2); Carbon Dioxide 24 mmol/L (22-30); Chloride 107 mmol/L (98-107); Estimated Creatinine Clearance 114 ml/min; Glucose 94 mg/dl (70-99); Magnesium 2.1 mg/dl (1.6-2.3); Potassium 4.3 mmol/L (3.5-5.1); Sodium 141 mmol/L (135-145); eGFR > 60.00
--- NOTE | 2025-05-17 11:07 | W.PN.GI.CBS2 ---
Addendum entered and electronically signed by Ileana Reno MD 05/17/25 14:26:
I saw and examined the patient.
The AMPOULE INSPECTOR or PA's note was reviewed and I agree with the note.
Comment: Patient without any abdominal pain, nausea or vomiting. After having low residue diet last night, he did have a twinge of abdominal pain but nothing at this time. No bowel movements yet and no further bleeding.
Abdomen-soft, nontender, nondistended
Hemoglobin 8.3, received 2 units of packed red blood cells this admission.
Upper deep enteroscopy showing 2 polypoid lesions in the proximal jejunum, biopsied and tattooed.
- Await pathology results
For MR enterography today
After the study, will advance to low residue diet
Monitor H&H and transfuse as needed
Following pathology results and MRI findings, we will need to discuss with advanced endoscopy team downtown regarding double-balloon enteroscopy and removal of the polypoid lesions in the small bowel.
Patient aware of the above plan.
Will follow-up on the testing
Original Note:
Today's Communication / Plan
-
Await MR enterography
Assessment / Plan
-
29 yo M with recurrent obscure GIB. Intermittent left-sided abdominal pain. Currently hemoglobin 8.3 up from 6.0, after 2 units packed red blood cells and initiation of IV iron.
Upper endoscopy September 2023 Dr. Maddox normal.
Colonoscopy September [address] Dr. Reno normal colon normal terminal ileum.
Capsule endoscopy September 2023 normal. Some erythema in the bowel but no clear source of anemia
EGD/push enteroscopy 05/16/2025:
- No gross lesions in the entire esophagus.
- Z-line variable, 41 cm from the incisors.
- 1 cm, small hiatal hernia.
- No gross lesions in the entire stomach.
- Normal second portion of the duodenum.
- Two polypoid lesions in the fourth portion duodenum vs proximal
jejunum. Biopsied. Injected. No active bleeding.
Impression:
- Obscure GI bleed
- Iron deficiency anemia
- 2 polypoid lesions in fourth portion of duodenum versus proximal jejunum
- History of cyclical vomiting
- Left-sided abdominal discomfort
Plan:
- MR enterography
- Possible video capsule endoscopy as an outpatient
- Await pathology from biopsies of polypoid lesions in duodenum/jejunum
- Trend labs
- Continue pantoprazole 40 mg IV twice daily
- Continue IV iron (to be completed 05/20/2025)
Subjective
Subjective
Date of Service: May 17, 2025
Patient status post EGD/push enteroscopy yesterday. Two 12 to 15 mm sessile polypoid ? submucosal lesions with no bleeding but with possible villous appearing mucosa at the tip of the lesion with some erythematous spots were found in the fourth
portion of the duodenum/proximal jejunum. These lesions were across from each other in the lumen. Biopsies were taken with a cold forceps for histology. Area was successfully injected with 2 mL Alana ink for tattooing proximal and distal to the
lesions. No evidence of active bleeding noted. No other lesions noted in the small bowel. The patient tolerated diet last evening. Currently n.p.o. for MRI enterography today. Hemoglobin currently 8.3 up from 7.9 yesterday. Initially hemoglobin
6.0 on 05/15/2025. He is status post 2 units packed red blood cells and is currently receiving 5 doses of IV iron (due to finish 05/20/2025). The patient has had no bowel movement since last evening. He had a small amount of abdominal discomfort last
evening but he states it was a 'twinge'.
Objective
Data Reviewed
Laboratory Data:
Laboratory Results
05/17/25 06:54
05/17/25 06:54
Laboratory Results
Phosphorus 4.0 mg/dl (2.5-4.5) 05/17/25 06:54
Magnesium 2.1 mg/dl (1.6-2.3) 05/17/25 06:54
Total Bilirubin 0.4 mg/dl (0.2-1.3) 05/15/25 11:15
AST 20 U/L (17-59) 05/15/25 11:15
ALT 11 U/L (0-50) 05/15/25 11:15
Alkaline Phosphatase 46 U/L (38-126) 05/15/25 11:15
Vital Signs and I&O:
Vital Signs
Temp Pulse Resp BP Pulse Ox
98.0 F 67 16 113/74 100
05/17/25 07:00 05/17/25 07:00 05/17/25 07:00 05/17/25 07:00 05/17/25 07:00
I&O
05/16/25 05/17/25 05/18/25
06:59 06:59 06:59
Intake Total 650 / 650 1760 / 1760
Balance 650 / 650 1760 / 1760
Physical Exam
Physical Exam
HEENT: Anicteric
Cardiology: Normal Sinus Rhythm
Pulmonary: Clear
GI: Soft, Non Distended, Non Tender and Normal Bowel Sounds
Extremities: No Edema
Neuro: Non Focal
[2025-05-17] MEDS: FERRLECIT 110 MG IV (13:21)
[2025-05-17 17:00] VITALS: BP 129/70
--- NOTE | 2025-05-17 18:56 | W.DCSUMMARY ---
Discharge Summary
Discharge Data
Date of Admission: 05/15/25
Date of Discharge: 05/17/25
-
Pending Results: Yes
Additional Pending Results:
MRI results, pathology results
Hospital Course
29M EMILY Marijuana use here for symptomatic severe anemia with associate black stools concerning for GIB. History recurrent anemia requiring multiple transfusions due to iron deficiency. History of capsule endo-September 2023 negative. Initial Hgb
6, MCV 62.2. Iron studies noted severe Iron deficiency. B12, folate wnl. Transfused 2 units PRBCs w/ appropriate response noted. Treated empirically with IV Protonix 40 mg twice daily. H&H stable since transfusions. Consult GI appreciated s/p
EGD 05/16, two polypoid lesions 4th Duodenum vs Proximal Jejunum biopsied. No NSAIDs 7 days after bx. Clear liquid diet advanced as tolerated to Low residue. MR enterography study obtained, results pending. Per GI, pending pathology and MR study
results, possible outpt follow up advanced endoscopy team [place] regarding double-balloon enteroscopy and removal of the polypoid lesions in the small bowel. History iron deficiency anemia, 5 IV transfusions May 2024, does not take daily
supplementation, has not followed up with heme. IV iron infusions while inpt, received 2 doses. Outpt heme follow up recommended. Medically stable, patient reported having a custody court hearing he had to report to in [place] next day
05/18. H&H trending up. MRI study results remained pending at the time. Discussed with patient, if discharged, potentially he may need to be called back should MRI results show alarming findings that required urgent
attention/evaluation/treatment. Patient able to verbalize his understanding of risk and also verbalized his willingness to comply with recall back to hospital if necessary. Confirmed [phone] cell phone number best number to reach patient in
case of emergency. patient AOx3 at capacity to make his own medical decisions, discharged as per patient's wishes with outpatient follow up recommendations.
Discharge Plan
-
Patient Disposition: Home (Routine Discharge)
Discharge Diagnosis/Procedures: GI bleed
Severe Iron Deficiency Anemia
Condition: Fair
Diet: Low Residue
Additional Diets: Follow up with GI for further diet advancement recommendations
Activity: As tolerated
Driving Restrictions: As prior to admission
Bathing Restrictions: None
Blood Work: Repeat bloodwork in 2 days of discharge (Thu05/19/25) with results to be forwarded to primary care provider, GI, and Hematology. Script provided to facilitate
Others Tests: Follow up with GI for possible benefit Double Balloon Enteroscopy.
Follow up with GI for pathology results of your biopsy.
Activity Restrictions/Additional Instructions:
Follow up with primary care provider in 1 week of discharge. Follow up with GI and Hematology in 1-2 weeks of discharge.
Instructions: Low-fiber diet
Referrals:
Julian Baker DO [Active, Hematology / Oncology] - in one to two weeks
Issa Benson PA-C [Family Provider] - in one week
Whit Maddox MD [Active, Gastroenterology] - in one to two weeks
Prescriptions:
Continued
pantoprazole [Protonix] 40 mg Tablet,Delayed Release (Dr/Ec)
40 mg PO DAILY
ondansetron 4 mg Tablet,Disintegrating
4 mg PO Q6HPRN PRN (Reason: nausea)
Discharge Orders:
Discharge Patient (As Directed); Ordered 05/17/25
Ordered By: Reg Pinto
Discharge Date and Time
Discharge Date/Time: 05/17/25 19:04
Print Language: FINNISH
== END 2025-05-17 19:04 | disposition home or self-care (01) | DRG 812 ==
LOC: 4 WEST ACU 13:27
PROVIDERS: Clinical Nurse Specialist Family Health; Internal Medicine Gastroenterology; ADMITTING PHYSICIAN Internal Medicine; ATTENDING PHYSICIAN Internal Medicine; CONSULT PHYSICIAN Internal Medicine Gastroenterology; EMERGENCY PHYSICIAN Student in an Organized Health Care Education/Training Program; FAMILY PHYSICIAN Physician Assistant Medical
PROC: 30233N1 Transfusion of Nonautologous Red Blood Cells into Peripheral Vein, Percutaneous Approach (ICD-10-PCS; 2025-05-15)
PROC: 0DB98ZX Excision of Duodenum, Via Natural or Artificial Opening Endoscopic, Diagnostic (ICD-10-PCS; 2025-05-16)
DX: D50.9 Iron deficiency anemia, unspecified (principal); K92.1 Melena; F12.90 Cannabis use, unspecified, uncomplicated; F41.9 Anxiety disorder, unspecified; G43.A0 Cyclical vomiting, in migraine, not intractable; K58.9 Irritable bowel syndrome, unspecified; K44.9 Diaphragmatic hernia without obstruction or gangrene; K22.89 Other specified disease of esophagus; K31.7 Polyp of stomach and duodenum
CPT/HCPCS: 72197; 74183; 80048; 80053; 82607; 82728; 82746; 83540; 83550; 83735; 84100; 85025; 86850; 86900; 86901; 86920; 88305; 99291; A9575; J2916; P9016